=== PATIENT | female | born 1950 | race Hispanic/Latino ===

== ENCOUNTER 2018-07-15 19:22 | Emergency (ER) | payer OTHER ==
--- NOTE | 2018-07-15 20:03 | ER ---
Nurse's Notes [facility] Department Name: Ne Bellamy Age: 68 yrs Sex: Female : 1950 Arrival Date: 07/15/2018 Time: 19:25 Bed 8 Private MD: Diagnosis: Cellulitis of right lower limb Presentation: 07/15 19:30 Presenting complaint: Patient states: Reports Abscess to left tejeda for 2 days. aj Transition of care: patient was not received from another setting of care. Onset of symptoms was July 13, 2018. Risk Assessment: Do you want to hurt yourself or someone else? Patient reports no desire to harm self or others. Initial Sepsis Screen: Does the patient meet any 2 criteria? No. Patient's initial sepsis screen is negative. Does the patient have a suspected source of infection? No. Patient's initial sepsis screen is negative. Care prior to arrival: None. 19:30 Method Of Arrival: Ambulatory aj 19:30 Acuity: TREVOR 3 aj Triage Assessment: 19:31 Bite description: bite sustained to left tejeda. General: Appears in no apparent aj distress. comfortable, Behavior is calm, cooperative, appropriate for age. Pain: Complains of pain in left tejeda. Neuro: Level of Consciousness is awake, alert, obeys commands, Oriented to person, place, time, situation, Appropriate for age. Respiratory: Airway is patent Respiratory effort is even, unlabored, Respiratory pattern is regular, symmetrical. Derm: Skin is intact, is healthy with good turgor, Skin is pink, warm \T\ dry. normal, Abscess located on left tejeda is half dollar sized, has no drainage, is red, is raised. 19:45 Bite description: by unknown how wound happened, animal information: vaccination(s) is ak1 unknown. Historical: - Allergies: 19:31 No Known Allergies; aj - Home Meds: 19:31 Lamictal Oral [Active]; aspirin 81 mg Oral TbEC 1 tab once daily [Active]; Norvasc Oral aj [Active]; - PMHx: 19:31 Hypertension; aj - PSHx: 19:31 None; aj - Immunization history:: Last tetanus immunization: unknown. - Social history:: Smoking status: Patient/guardian denies using tobacco. - Ebola Screening: : Patient negative for fever greater than or equal to 101.5 degrees Fahrenheit, and additional compatible Ebola Virus Disease symptoms Patient denies exposure to infectious person Patient denies travel to an Ebola-affected area in the 21 days before illness onset No symptoms or risks identified at this time. Screenin:45 Abuse screen: Denies threats or abuse. Denies injuries from another. Nutritional ak1 screening: No deficits noted. Tuberculosis screening: No symptoms or risk factors identified. Fall Risk None identified. Assessment: 19:43 General: Appears in no apparent distress. Behavior is calm, cooperative. Pain: ak1 Complains of pain in left tejeda. Neuro: No deficits noted. Cardiovascular: No deficits noted. Respiratory: No deficits noted. GI: No signs and/or symptoms were reported involving the gastrointestinal system. : No signs and/or symptoms were reported regarding the genitourinary system. EENT: No signs and/or symptoms were reported regarding the EENT system. Derm: Wound noted Other: abscess to left tejeda X2 days. Musculoskeletal: No signs and/or symptoms reported regarding the musculoskeletal system. Vital Signs: 19:31 BP 174 / 61; Pulse 83; Resp 19; Temp 97.0; Pulse Ox 98% on R/A; Weight 78.47 kg; Height aj 5 ft. 5 in. (165.10 cm); 19:31 Body Mass Index 28.79 (78.47 kg, 165.10 cm) aj ED Course: 19:25 Patient arrived in ED. ag3 19:31 Triage completed. aj 19:31 Arm band placed on right wrist. Patient placed in an exam room. aj 19:37 Samara Haile, RN is Primary Nurse. ak1 19:44 Patient has correct armband on for positive identification. Bed in low position. Call ak1 light in reach. Side rails up X 1. 19:45 Srinivasan Angelo MD is Attending Physician. kdr 20:01 Boyd Ruelas MD is Referral Physician. kdr 20:24 No provider procedures requiring assistance completed. Patient did not have IV access ak1 during this emergency room visit. Administered Medications: 20:14 Drug: Bactrim (160 mg-800 mg (DS) 1 tablet Route: PO; ak1 20:24 Follow up: Response: No adverse reaction ak1 20:14 Drug: Dovray 10 mg-325 mg 1 tabs Route: PO; ak1 20:24 Follow up: Response: No adverse reaction ak1 20:18 Drug: Clindamycin 600 mg Route: IM; Site: right gluteus; ak1 20:24 Follow up: Response: No adverse reaction ak1 Outcome: 20:02 Discharge ordered by . kdr 20:25 Discharged to home ambulatory, with family. ak1 20:25 Condition: good 20:25 Discharge instructions given to patient, family, Instructed on discharge instructions, follow up and referral plans. no drinking with medication, no driving heavy equipment, medication usage, Demonstrated understanding of instructions, follow-up care, medications, Prescriptions given X 3. 20:27 Patient left the ED. ak1 Signatures: Krista Rodriguez RN Srinivasan Larsen MD MD kdr Krenek, Amber, RN RN ak1 Shira Self
--- NOTE | 2018-07-15 20:03 | EDPHYS ---
Physician Documentation [facility] Name: Ne Bellamy Age: 68 yrs Sex: Female : 1950 Arrival Date: 07/15/2018 Time: 19:25 Bed 8 Private MD: ED Physician Srinivasan Angelo HPI: 07/15 20:04 This 68 yrs old Female presents to ER via Ambulatory with complaints of Insect kdr Bite. 20:04 The patient presents with cellulitis of the right tejeda, the patient presents with a kdr swollen area of the . Description: The affected area is The patient had 1 cm janey abscess and 4 cm janey erythema., confluent, localized, erythematous, hot, tense, warm. Onset: The symptoms/episode began/occurred gradually, 2 day(s) ago. Possible cause(s): unknown. Associated signs and symptoms: The patient has no apparent associated signs or symptoms. Modifying factors: the symptoms are alleviated by nothing, the symptoms are aggravated by pressure, squeezing the lesion and expressing the contents, touching. Severity of symptoms: At their worst the symptoms were mild, in the emergency department the symptoms are unchanged. The patient has not experienced similar symptoms in the past. The patient has not recently seen a physician. Historical: - Allergies: 19:31 No Known Allergies; aj - Home Meds: 19:31 Lamictal Oral [Active]; aspirin 81 mg Oral TbEC 1 tab once daily [Active]; Norvasc Oral aj [Active]; - PMHx: 19:31 Hypertension; aj - PSHx: 19:31 None; aj - Immunization history:: Last tetanus immunization: unknown. - Social history:: Smoking status: Patient/guardian denies using tobacco. - Ebola Screening: : Patient negative for fever greater than or equal to 101.5 degrees Fahrenheit, and additional compatible Ebola Virus Disease symptoms Patient denies exposure to infectious person Patient denies travel to an Ebola-affected area in the 21 days before illness onset No symptoms or risks identified at this time. ROS: 20:04 Constitutional: Negative for fever, chills, and weight loss, Eyes: Negative for injury, kdr pain, redness, and discharge, Neck: Negative for injury, pain, and swelling. 20:04 Skin: Positive for abscess, cellulitis, discoloration, erythema, Negative for Exam: 20:04 Skin: abscess, that is small, approximately 1 cm(s), of the right tejeda, with kdr fluctuance, that is marked, with pointing, that is obvious, with surrounding cellulitis, that is moderate. 20:08 Constitutional: This is a well developed, well nourished patient who is awake, alert, kdr and in no acute distress. Vital Signs: 19:31 BP 174 / 61; Pulse 83; Resp 19; Temp 97.0; Pulse Ox 98% on R/A; Weight 78.47 kg; Height aj 5 ft. 5 in. (165.10 cm); 19:31 Body Mass Index 28.79 (78.47 kg, 165.10 cm) aj MDM: 20:02 Patient medically screened. kdr 20:04 Data reviewed: vital signs, nurses notes. Counseling: I had a detailed discussion with kdr the patient and/or guardian regarding: the historical points, exam findings, and any diagnostic results supporting the discharge/admit diagnosis, the need for outpatient follow up. Administered Medications: 20:14 Drug: Bactrim (160 mg-800 mg (DS) 1 tablet Route: PO; ak1 20:24 Follow up: Response: No adverse reaction ak1 20:14 Drug: [place] 10 mg-325 mg 1 tabs Route: PO; ak1 20:24 Follow up: Response: No adverse reaction ak1 20:18 Drug: Clindamycin 600 mg Route: IM; Site: right gluteus; ak1 20:24 Follow up: Response: No adverse reaction ak1 Disposition: 07/15/18 20:02 Discharged to Home. Impression: Cellulitis of right lower limb. - Condition is Stable. - Discharge Instructions: Cellulitis, Adult. - Prescriptions for Clindamycin HCl 300 mg Oral Capsule - take 1 capsule by ORAL route every 6 hours for 10 days; 40 capsule. Tylenol- Codeine #3 300-30 mg Oral Tablet - take 2 tablets by ORAL route every 6 hours As needed; 15 tablet. Bactrim DS 800- 160 mg Oral Tablet - take 1 tablet by ORAL route every 12 hours for 10 days; 20 tablet. - Medication Reconciliation Form, Thank You Letter, Antibiotic Education, Prescription Opioid Use form. - Follow up: Boyd Ruelas MD; When: 2 - 3 days; Reason: If symptoms return, Further diagnostic work-up, Recheck today's complaints, Continuance of care, Re-evaluation by your physician. - Problem is new. - Symptoms have improved. Signatures: Krista Rodriguez RN RN Srinivasan Carmona MD MD kdr Samara Haile RN RN ak1 Corrections: (The following items were deleted from the chart) 20:27 20:02 07/15/2018 20:02 Discharged to Home. Impression: Cellulitis of right lower limb. ak1 Condition is Stable. Forms are Medication Reconciliation Form, Thank You Letter, Antibiotic Education, Prescription Opioid Use. Follow up: Boyd Ruelas; When: 2 - 3 days; Reason: If symptoms return, Further diagnostic work-up, Recheck today's complaints, Continuance of care, Re-evaluation by your physician. Problem is new. Symptoms have improved. kdr
[2018-07-15] MEDS ORDERED: SMZ./TMP. 800/160 MG TABLET ONE (20:17)
[2018-07-15] MEDS ORDERED: HYDROCODONE/APAP 10/325 TAB ONE (20:17)
[2018-07-15] MEDS ORDERED: CLINDAMYCIN IV 150 MG/ML (4 mL) VIAL ONE (20:22)
[2018-07-15 20:56] VITALS: BP 174/61; TEMP 97; O2SAT 98
== END 2018-07-15 20:27 | disposition home or self-care (01) ==
LOC: ER 19:22
DX: L03.115 Cellulitis of right lower limb (principal); I10 Essential (primary) hypertension; Z79.82 Long term (current) use of aspirin
CPT/HCPCS: 96372; 99283; S0077

== ENCOUNTER 2020-09-06 19:44 | Emergency (ER) | payer OTHER ==
--- OUTSIDE RECORDS SUMMARY | 2020-09-06 19:47 | XMS REPORT | Continuity of Care Document ---
:1950 Author Organization [facility] t Address [address] [place] [address] Care Team Providers Name Role Phone GELLER Attending Clinician Unavailable Payers Payer Name Policy Type Policy Number Effective Date Expiration Date S ource Problems Condition Condition Condition Status Onset Resolution Last Treating Co mments Source Name Details Category Date Date Treatment Clinician Date History of History of Problem Resolve [facility] [place] [facility] Breast Breast Problem Active [facility] mass, left mass, [facility] [place] [facility] Allergies, Adverse Reactions, Alerts Allergy Allergy Status Severity Reaction(s) Onset Inactive Treating Comm ents Source Name Type Date Date Clinician No Known DA Active U 2018-0 [facility] [place] Family History Family Member Diagnosis Comments Start Date Stop Date Source Sister Family history of [facility] [place] malignant neoplasm [facility] of breast Social History Smoking Status Start Date Stop Date Source Former smoker [facility] Medications This patient has no known medications. Vital Signs Vital Name Observation Time Observation Value Comments Source BP [facility]st[facility] 2019-04-24 09:46:00 173 [facility] BP Diastolic 2019-04-24 09:46:00 71 mm[Hg[facility] Weight 2019-04-24 09:46:00 211 [lb_av] [facility] Body Mass Index 2019-04-24 09:46:00 35.11 kg/m2 [facility] [place] [facility] Temperature 2019-04-24 09:46:00 97.8 [degF] [facility] [place] [facility] Heart Rate 2019-04-24 09:46:00 75 /min [facility] [place] [facility] BP Systolic 2019-03-06 10:37:00 185 mm[Hg] [facility] [place] [facility] BP Diastolic 2019-03-06 10:37:00 84 mm[Hg] [facility] [place] [facility] Weight 2019-03-06 10:37:00 211 [lb_av] [facility] [place] [facility] Height 2019-03-06 10:37:00 65 [in_us] [facility] [place] [facility] Body Mass Index 2019-03-06 10:37:00 35.11 kg/m2 [facility] [place] [facility] Temperature 2019-03-06 10:37:00 97.5 [degF] [facility] [place] [facility] Procedures Procedure Date / Time Performing Clinician Source Performed History of Hysterectomy [facility] [place] [facility] Encounters Start End Encounter Admission Attending Care Care Encounter Source Date/Time Date/Time Type Type Clinicians Facility Department ID 2019-04-24 2019-04-24 [facility] [id number] [facility] 11:00:00 11:00:00 t; Shahzad MUNOZ Surgery - [facility] Lucio MUNOZ M.D. [place] [facility] 2019-03-06 2019-03-06 [facility] [id number] Univers 11:00:00 11:00:00 t[facility] [place] [facility] Results Test Description Test Time Test Comments Results Result [facility] e Comments UTERUS W/WO 2019-01-06 TUBE/OVA. PROLAPSE 15:55:00 --------RUN DATE: 01/06/19 [facility] PAGE 1 RUN TIME: 1702 Specimen Inquiry RUN USER: INTERFACE --------PATIENT: [facility]TER [facility] #: [id number] AGE/SX: 68/F ROOM: [facility] RE01/05/19REG DR: Yolanda Ragsdale MD : [birth year] BED: A DIS: 01/06/19 STATUS: DIS Hien TLOC: -------- SPEC #: [id number] RECD: 01/05/19 STATUS: PB REFrancisca #: [id number] LINDA: 01/05/19- SUBM DR: Yolanda Ragsdale MD ENTERED: 01/05/19 SP TYPE: UTERUSPRO OTHR DR: ORDERED: LEVEL IV CODES: [id number] - UTERUS, NOS PROCEDURES: LEVEL IV (Incomplete) TISSUES: UTERUS, NOS - UTERUS, CERVIX, BILATERAL FALLOPIAN TUBES AND OVARIES CLINICAL HISTORY 68 year old, cystocele, uterine prolapse, DANILO (wpd) FINAL DIAGNOSIS Uterus, cervix, bilateral fallopian tubes and ovaries, hysterectomy and bilateral salpingo-oophorectomy : - cervix, no significant pathologic alteration - benign endometrium with cystic atrophy - hyalinized and focally calcified leiomyomas of submucosa and myometrium - adenomyosis - uterine serosa, no significant pathologic alteration - bilateral ovarian atrophy - previously ligated fallopian tubes (clips present), the right with a paratubal cyst Tissue code 1 CPT code(s): 342[address] [facility] 01/06/19 GROSS DESCRIPTION ANATOMIC SOURCE OF TISSUE (per Requisition): Uterus, cervix, bilateral tubes and ovaries The specimen is received in formalin in a container, labeled with the patient's name and designated "uterus, cervix, bilateral tubes and ovaries". It consists of a 7.4 x 4.5 x 2.6 cm hysterectomy specimen with bilateral adnexa attached. The uterus weighs 45 gm. The serosa is connors, smooth, and glistening. The cervical external os measures 0.5 cm. The portio vaginalis measures 3.0 cm. The uterine cervix measures 3.5 cm in length. Material Handling Crew Supervisor sections are submitted in A1. CONTINUED ON NEXT PAGE --------RUN DATE: 01/06/19 [facility] PAGE 2 RUN TIME: 1702 Specimen Inquiry RUN USER: INTERFACE --------SPEC #: [id number] PATIENT: SUE BAXTER #[id number] (Continued) GROSS DESCRIPTION (Continued) The endometrium measures 0.1 cm and contains submucosal, firm nodules measuring up to 1.7 cm. The myometrium measures up to 1.0 cm and contains additional connors-white, firm nodules measuring up to 0.6 cm. The largest submucosal, firm nodule displays focal yellow calcification. Material Handling Crew Supervisor sections are submitted in A2 - A4 (A3 and A4 contains sections of the largest firm nodule with calcifications). The right adnexa consists of a 1.6 x 0.7 x 0.5 cm ovary with an attached previously ligated 6 x 0.4 x 0.4 cm segment of fallopian tube with fimbria. The ligation site contains a 1.2 cm clip. The entire fimbria, one cross-section of the tube and ovary are submitted in A5. The left adnexa consists of a 1.0 x 0.6 x 0.4 cm ovary with an attached previously ligated 3.5 x 0.4 x 0.3 cm segment of fallopian tube with fimbria. The ligation site contains a 1.2 cm clip. The entire fimbria and one cross-section of the tube and ovary are submitted in A6. hz/wpd 01/05/19 @ 1357 Signed Gabby Yates MD 01/06/19 1555 -------- END OF REPORT HGB HCT 2019-01-06 04:46:00 Test Item Value Reference Range Interpretation Comme nts HEMOGLOBIN (test code = HGB) 11.6 g/dL 10.7-13.9 N HEMATOCRIT (test code = HCT) 36.5 % 32.1-42.1 N AG HEPATITIS B [id number] 14:11:00 Test Item Value Reference Range Interpretation Comments AG HEPATITIS B SURFACE (test code NONREACTIVE NONREACTIVE = HBSAG) IS CONSENT FORM SIGNED FOR HIV TESTING? YAB HEPATITIS C [id number] 14:11:00 Test Item Value Reference Range Interpretation Comments AB HEPATITIS C (test code = NONREACTIVE NONREACTIVE HCVAB) SIGNAL TO CUTOFF (test code = 0.04 <0.80 N CUTOFF) IS CONSENT FORM SIGNED FOR HIV TESTING? YAB HIV 1 14:11:00 Test Item Value Reference Range Interpretation Comments AB HIV 1 2 (test NONREACTIVE NONREACTIVE Done by Magnolia Allison code = [id number]) 4th Gen HIV Ag/Ab Combo Screen IS CONSENT FORM SIGNED FOR HIV TESTING? YAG HEPATITIS B [id number] 13:41:00 Test Item Value Reference Range Interpretation Comments AG HEPATITIS B SURFACE (test code NONREACTIVE NONREACTIVE = HBSAG) IS CONSENT FORM SIGNED FOR HIV TESTING? YAB HEPATITIS C [id number] 13:41:00 Test Item Value Reference Range Interpretation Comments AB HEPATITIS C (test code = HCVAB) NONREACTIVE SIGNAL TO CUTOFF (test code = CUTOFF) <0.80 IS CONSENT FORM SIGNED FOR HIV TESTING? YAB HIV 1 13:41:00 Test Item Value Reference Range Interpretation Comments AB HIV 1 2 (test code = GFS23JG) NONREACTIVE IS CONSENT FORM SIGNED FOR HIV TESTING? YCHEMISTRY 7 [id number] 13:24:00 Test Item Value Reference Range Interpretation Comments SODIUM (test code = NA) 140 mEq/L 135-145 N POTASSIUM (test code = K) 4.4 mEq/L 3.5-5.0 N CHLORIDE (test code = CL) 102 mEq/L 100-115 N CARBON DIOXIDE (test code = CO2) 27 mEq/L 22-31 N ANION GAP (test code = GAP) 15.70 10-20 N GLUCOSE (test code = GLU) 97 mg/dL 65-110 N BLOOD UREA NITROGEN (test code = 17 mg/dL 7-18 N BUN) GLOMERULAR FILTRATION RATE (test 55 ml/min >60 L code = GFR) CREATININE (test code = CREAT) 1.0 mg/dL 0.5-1.0 N CALCIUM (test code = CA) 9.5 mg/dL 8.4-10.2 N CBC W/AUTO [id number] 12:49:00 Test Item Value Reference Range Interpretation Comments WHITE BLOOD CELL (test code = WBC) 7.8 K/mm3 6.6-12.1 N RED BLOOD CELL (test code = RBC) 4.65 M/mm3 3.45-5.01 N HEMOGLOBIN (test code = HGB) 13.7 g/dL 10.7-13.9 N HEMATOCRIT (test code = HCT) 43.2 % 32.1-42.1 H MEAN CELL VOLUME (test code = MCV) 93 fL 84.1-94.8 N MEAN CELL HGB (test code = MCH) 29.5 pg 27-35 N MEAN CELL HGB CONCETRATION (test 31.7 gm/dL 32.2-34.1 L code = MCHC) RED CELL DISTRIBUTION WIDTH (test 13.4 % 12.4-16.5 N code = RDW) PLATELET COUNT (test code = PLT) 273 K/mm3 133-385 N IMMATURE PLATELET FRACTION (test 0.0 % 0.0-10.8 N code = IPF) MEAN PLATELET VOLUME (test code = 10.9 fl 9.1-12.7 N MPV) NEUTROPHIL % (test code = NT%) 63.2 % 56.5-79.4 N LYMPHOCYTE % (test code = LY%) 27.7 % 14.3-34.3 N MONOCYTE % (test code = MO%) 6.3 % 5.1-10.4 N EOSINOPHIL % (test code = EO%) 1.9 % 0.1-3.0 N BASOPHIL % (test code = BA%) 0.5 % 0.1-1.0 N NEUTROPHIL # (test code = NT#) 4.9 K/mm3 LYMPHOCYTE # (test code = LY#) 2.2 K/mm3 MONOCYTE # (test code = MO#) 0.5 K/mm3 EOSINOPHIL # (test code = EO#) 0.15 K/mm3 BASOPHIL # (test code = BA#) 0.0 K/mm3 RBC MORPHOLOGY REQUIRED (test code NORMAL NORMAL = RBCM) PLATELET MORPHOLOGY REQUIRED (test NORMAL NORMAL code = PLTMR) URINALYSIS [id number] 12:24:00 Test Item Value Reference Range Interpretation Comments UA COLOR (test code = COLU) YELLOW YELLOW UA APPEARANCE (test code = CLEAR CLEAR APPU) UA GLUCOSE DIPSTICK (test code NEGATIVE NEG = DGLUU) UA BILIRUBIN DIPSTICK (test NEGATIVE NEG code = BILU) UA KETONE DIPSTICK (test code NEGATIVE NEG = KETU) UA SPECIFIC GRAVITY (test code 1.008 1.001-1.035 N = SGU) UA BLOOD DIPSTICK (test code = NEG NEG NYLA) UA PH DIPSTICK (test code = 6.0 5-9 RUTH) UA PROTEIN DIPSTICK (test code NEGATIVE NEG = PROU) UA UROBILINIOGEN DIPSTICK NEGATIVE mg/dL NEG (test code = URO) UA NITRITE DIPSTICK (test code NEG NEG = MARITZA) UA LEUKOCYTE ESTERASE DIPSTICK NEG NEG (test code = LEUU) UA WBC (test code = WBCU) 0-2 #/hpf NONE SEEN UA RBC (test code = RBCU) 0-2 #/hpf NONE SEEN UA EPITHELIAL CELLS (test code RARE #/HPF RARE-FEW = EPIU) UA MUCUS (test code = MUCU) RARE NONE SEEN URINE SAMPLE: CLEAN CATCH
[2020-09-06 20:37] LABS: Absolute Lymphocytes (CBC) 1.5 K/uL (0.7-4.9); Basophils % 0.7 % (0-1.3); Hematocrit 43.9 % (36.0-45.0); Lymphocytes % 13.7 % (15.3-44.8); MPV 7.8 fL (7.6-11.3); RBC Red Blood Cell Count 5.15 M/uL (3.86-4.86)
[2020-09-06 20:42] LABS: Protime INR 1.07
[2020-09-06 20:57] LABS: ALT/SGPT 31 U/L (12-78); AST/SGOT 33 U/L (15-37); Albumin 3.7 g/dL (3.4-5.0); Alkaline Phosphatase 102 U/L (45-117); BUN Blood Urea Nitrogen 16 mg/dL (7-18); Bicarbonate 25 mmol/L (21-32); Bilirubin Direct 0.2 mg/dL (0-0.2); Bilirubin Total 0.6 mg/dL (0.2-1.0); Glucose Level 140 mg/dL (74-106); NT PRO-BNP 29 pg/mL (<125); Potassium 3.2 mmol/L (3.5-5.1); Protein, Total 8.9 g/dL (6.4-8.2); Sodium Level 135 mmol/L (136-145); Troponin (Emerg Dept Use Only) < 0.02 ng/mL (0.0-0.045)
--- NOTE | 2020-09-06 21:00 | RAD REPORT ---
EXAM DESCRIPTION: CT - Head Brain Wo Cont - 09/06/2020 8:35 pm CLINICAL HISTORY: Headache COMPARISON: 2007 TECHNIQUE: Computed axial tomography of the head was obtained. IV contrast was not requested. All CT scans are performed using dose optimization technique as appropriate and may include automated exposure control or mA/KV adjustment according to patient size. FINDINGS: An intracranial bleed is not seen . 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 The ventricles are normal in caliber. No extra-axial fluid collection is noted. Fluid within the sinuses/ mastoids is not seen. IMPRESSION: No acute intracranial abnormality is seen. If patient's symptoms persist MRI of the bra in would be recommended.
--- NOTE | 2020-09-06 21:16 | RAD REPORT ---
EXAM DESCRIPTION: Raphael Single View09/06/2020 8:48 pm CLINICAL HISTORY: Cough COMPARISON: 2019 FINDINGS: Left base is hazy. The remainder of the lungs appear clear of acute infiltrate. The heart is normal size IMPRESSION: Left base is hazy. This could be secondary to infiltrate or overlying soft tissue. [facility] er evaluation could either be obtained with PA and lateral chest series or CT chest
[2020-09-06] MEDS ORDERED: POTASSIUM CL SA 10 MEQ TAB PO ONE (21:43)
[2020-09-06 22:12] LABS: Urine Blood TRACE (NEG); Urine Glucose NEGATIVE (NEG); Urine Protein NEGATIVE (NEG)
[2020-09-06] MEDS ORDERED: NA CHLORIDE 0.9% 1,000 ML ONE (22:24)
[2020-09-06] MEDS ORDERED: CEFTRIAXONE/SWI 1gm 1 GM/10 ML SYR ONE (22:24)
[2020-09-06 22:36] LABS: Urine Bacteria <20 /HPF (<20); Urine Mucus 1+ /HPF (NONE SEEN)
--- NOTE | 2020-09-06 23:04 | ER ---
Nurse's Notes [facility] Name: Ne Bellamy Age: 70 yrs Sex: Female : 1950 Arrival Date: 09/06/2020 Time: 19:46 Bed 7 Private MD: Diagnosis: Pneumonia;Viral Syndrome;UTI Presentation: 09/06 20:03 Chief complaint: Patient states: Weak, tired, FIGUEROA, body aches, cough for 3 days. No ll1 known fever. Little nausea. Coronavirus screen: Client denies travel out of the [place] in the last 14 days. cough unrelated to allergies, difficulty breathing, fatigue, headache, nausea, loss of taste or smell, Client presents with at least one sign or symptom that may indicate coronavirus-19. Standard/surgical mask placed on the client. Ebola Screen: Patient denies travel to an Ebola-affected area in the 21 days before illness onset. Initial Sepsis Screen: Does the patient meet any 2 criteria? HR > 90 bpm. No. Patient's initial sepsis screen is negative. Does the patient have a suspected source of infection? Yes: Productive cough/pneumonia. Risk Assessment: Do you want to hurt yourself or someone else? Patient reports no desire to harm self or others. Onset of symptoms was September 04, 2020. 20:03 Method Of Arrival: Ambulatory ll1 20:03 Acuity: TREVOR 3 ll1 Triage Assessment: 20:04 General: Appears in no apparent distress. Behavior is appropriate for age. Pain: ea Complains of pain in body aches. Respiratory: Airway is patent Respiratory effort is even, unlabored, Respiratory pattern is regular, symmetrical. Historical: - Allergies: 20:03 No Known Allergies; ll1 20:03 No Known Allergies; ea - PMHx: 20:03 Hypertension; Seizures; ll1 20:03 Seizures; Hypertension; ea - PSHx: 20:03 Hysterectomy; ll1 20:03 None; ea - Immunization history:: Adult Immunizations up to date, Flu vaccine is up to date. - Social history:: Smoking status: Patient denies any tobacco usage or history of. Smoking status: Patient denies any tobacco usage or history of. Screenin:01 Abuse screen: Denies threats or abuse. Nutritional screening: No deficits noted. ea Tuberculosis screening: No symptoms or risk factors identified. Fall Risk None identified. Assessment: 20:00 General: Appears in no apparent distress. uncomfortable, Behavior is calm, cooperative, rr5 appropriate for age, Reports feeling ill for fatigue for. Pain: Denies pain. Neuro: Level of Consciousness is awake, alert, obeys commands, Oriented to person, place, time, situation, Reports drowsiness. Cardiovascular: Capillary refill < 3 seconds Patient's skin is warm and dry. Respiratory: Reports cough that is Airway is patent Respiratory effort is even, unlabored, Respiratory pattern is regular, symmetrical. 20:00 GI: No signs and/or symptoms were reported involving the gastrointestinal system. : rr5 No signs and/or symptoms were reported regarding the genitourinary system. EENT: No signs and/or symptoms were reported regarding the EENT system. Derm: Skin is intact, is healthy with good turgor, Skin temperature is cool. Musculoskeletal: Capillary refill < 3 seconds. 21:30 Reassessment: Patient appears in no apparent distress at this time. Patient is alert, rr5 oriented x 3, equal unlabored respirations, skin warm/dry/pink. send for CT angio assisted by CT staff. 22:30 Reassessment: Patient appears in no apparent distress at this time. Patient is alert, rr5 oriented x 3, equal unlabored respirations, skin warm/dry/pink. no complaints made. 23:21 Reassessment: Patient appears in no apparent distress at this time. Patient is alert, rr5 oriented x 3, equal unlabored respirations, skin warm/dry/pink. discharge instruction given and explained without complaints made Patient states feeling better. Patient states symptoms have improved. Vital Signs: 20:02 BP 154 / 69; Pulse 70; Resp 19; Temp 99.6; Pulse Ox 98% ; ea 20:03 BP 154 / 69; Pulse 98; Resp 18; Temp 99.6; Pulse Ox 94% on R/A; Weight 83.91 kg; Height ll1 5 ft. 5 in. (165.10 cm); 21:00 BP 141 / 89; Pulse 90; Resp 16; Pulse Ox 98% ; rr5 22:11 BP 126 / 80; Pulse 80; Resp 17; Pulse Ox 100% ; rr5 23:21 BP 125 / 70; Pulse 75; Resp 19; Temp 98.5; Pulse Ox 99% ; rr5 20:03 Body Mass Index 30.79 (83.91 kg, 165.10 cm) ll1 ED Course: 19:46 Patient arrived in ED. cl3 19:57 Kenroy Gómez, RN is Primary Nurse. rr5 19:57 Gerardo Macedo MD is Attending Physician. mh7 20:01 Patient has correct armband on for positive identification. Placed in gown. Bed in low ea position. Call light in reach. Side rails up X2. Pulse ox on. NIBP on. 20:01 Arm band placed on right wrist. Patient placed in an exam room, on a stretcher, on ea pulse oximetry. 20:05 Triage completed. ll1 20:15 COVID swab sent to lab. Flu and/or RSV swab sent to lab. rr5 20:30 EKG done, by ED staff, reviewed by Gerardo Macedo MD. rr5 20:34 Inserted saline lock: 20 gauge in right forearm, using aseptic technique. Blood rr5 collected. 20:36 CT Head Brain wo Cont In Process Unspecified. EDMS 20:47 XRAY Chest (1 view) In Process Unspecified. EDMS 21:41 CT Chest For PE Angio In Process Unspecified. EDMS 22:09 Urine collected: clean catch specimen, clear. rr5 23:20 No provider procedures requiring assistance completed. IV discontinued, intact, rr5 bleeding controlled, No redness/swelling at site. Pressure dressing applied. Administered Medications: 21:40 Drug: Potassium Chloride 40 mEq Route: PO; rr5 22:27 Follow up: Response: No adverse reaction rr5 22:19 Drug: NS 0.9% 1000 ml Route: IV; Rate: 1 bolus; Site: right antecubital; rr5 23:22 Follow up: Response: No adverse reaction; IV Status: Completed infusion; IV Intake: rr5 1000ml 22:19 Drug: Rocephin 1 grams Route: IV; Rate: calculated rate; Site: right forearm; rr5 23:21 Follow up: Response: No adverse reaction; IV Status: Completed infusion; IV Intake: [id number] Intake: 23:21 IV: 10ml; Total: 10ml. rr5 23:22 IV: 1000ml; Total: 1010ml. rr5 Outcome: 23:04 Discharge ordered by . 7 23:20 Discharged to home ambulatory. rr5 23:20 Condition: stable 23:20 Discharge instructions given to patient, Instructed on discharge instructions, follow up and referral plans. medication usage, Demonstrated understanding of instructions, follow-up care, medications, Prescriptions given X 3. 23:22 Patient left the ED. rr5 Addendum: 09/10/2020 08:48 Addendum: Culture Results: Positive urine culture. Bacteria is resistant to, has s v intermediate sensitivity, or is not tested against prescribed antibiotics. Report given to MARLENI for further evaluation and then to abap developer for follow up with patient. Phone call Attempt #1 left voicemail. Signatures: Dispatcher Kalion EDMS Terri Franco RN RN Lin Jose RN Kenroy Fink ea RN RN rr5 Jason Yeh3 Edouard Yeh RN RN ll1 Gerardo Macedo MD MD mh7
--- NOTE | 2020-09-06 23:04 | EDPHYS ---
Physician Documentation [facility] Name: Ne Bellamy Age: 70 yrs Sex: Female : 1950 Arrival Date: 09/06/2020 Time: 19:46 Bed 7 Private MD: ED Physician Gerardo Macedo HPI: 09/06 20:22 This 70 yrs old Female presents to ER via Ambulatory with complaints of Drowsy.mh7 20:22 The patient or guardian reports cough, that is intermittent, described as moderate, mh7 with no sputum. 20:23 The patient or guardian reports flu symptoms, myalgias, Headache. Onset: The mh7 symptoms/episode began/occurred 2 day(s) ago. Severity of symptoms: At their worst the symptoms were moderate, yesterday, in the emergency department the symptoms have improved, moderately. Modifying factors: The symptoms are alleviated by nothing, the symptoms are aggravated by nothing. Associated signs and symptoms: Pertinent positives: loss of taste, Pertinent negatives: chest pain, diarrhea, ear ache, fever, nausea, rhinorrhea, sore throat, vomiting. Historical: - Allergies: 20:03 No Known Allergies; ll1 20:03 No Known Allergies; ea - PMHx: 20:03 Hypertension; Seizures; ll1 20:03 Seizures; Hypertension; ea - PSHx: 20:03 Hysterectomy; ll1 20:03 None; ea - Immunization history:: Adult Immunizations up to date, Flu vaccine is up to date. - Social history:: Smoking status: Patient denies any tobacco usage or history of. Smoking status: Patient denies any tobacco usage or history of. ROS: 20:23 Constitutional: Negative for fever, chills, and weight loss, Eyes: Negative for injury, mh7 pain, redness, and discharge, ENT: Negative for injury, pain, and discharge, Neck: Negative for injury, pain, and swelling, Cardiovascular: Negative for chest pain, palpitations, and edema, Abdomen/GI: Negative for abdominal pain, nausea, vomiting, diarrhea, and constipation, Back: Negative for injury and pain, : Negative for injury, bleeding, discharge, and swelling, MS/Extremity: Negative for injury and deformity, Skin: Negative for injury, rash, and discoloration, Psych: Negative for depression, anxiety, suicide ideation, homicidal ideation, and hallucinations, Allergy/Immunology: Negative for hives, rash, and allergies, Endocrine: Negative for neck swelling, polydipsia, polyuria, polyphagia, and marked weight changes, Hematologic/Lymphatic: Negative for swollen nodes, abnormal bleeding, and unusual bruising. Exam: 20:23 Constitutional: This is a well developed, well nourished patient who is awake, alert, mh7 and in no acute distress. Head/Face: Normocephalic, atraumatic. Eyes: Pupils equal round and reactive to light, extra-ocular motions intact. Lids and lashes normal. Conjunctiva and sclera are non-icteric and not injected. Cornea within normal limits. Periorbital areas with no swelling, redness, or edema. Neck: Trachea midline, no thyromegaly or masses palpated, and no cervical lymphadenopathy. Supple, full range of motion without nuchal rigidity, or vertebral point tenderness. No Meningismus. Chest/axilla: Normal chest wall appearance and motion. Nontender with no deformity. No lesions are appreciated. Cardiovascular: Regular rate and rhythm with a normal S1 and S2. No gallops, murmurs, or rubs. Normal PMI, no JVD. No pulse deficits. Respiratory: Lungs have equal breath sounds bilaterally, clear to auscultation and percussion. No rales, rhonchi or wheezes noted. No increased work of breathing, no retractions or nasal flaring. Abdomen/GI: Soft, non-tender, with normal bowel sounds. No distension or tympany. No guarding or rebound. No evidence of tenderness throughout. Back: No spinal tenderness. No costovertebral tenderness. Full range of motion. Skin: Warm, dry with normal turgor. Normal color with no rashes, no lesions, and no evidence of cellulitis. MS/ Extremity: Pulses equal, no cyanosis. Neurovascular intact. Full, normal range of motion. Neuro: Awake and alert, GCS 15, oriented to person, place, time, and situation. Cranial nerves II-XII grossly intact. Motor strength 5/5 in all extremities. Sensory grossly intact. Cerebellar exam normal. Normal gait. Psych: Awake, alert, with orientation to person, place and time. Behavior, mood, and affect are within normal limits. Vital Signs: 20:02 BP 154 / 69; Pulse 70; Resp 19; Temp 99.6; Pulse Ox 98% ; ea 20:03 BP 154 / 69; Pulse 98; Resp 18; Temp 99.6; Pulse Ox 94% on R/A; Weight 83.91 kg; Height ll1 5 ft. 5 in. (165.10 cm); 21:00 BP 141 / 89; Pulse 90; Resp 16; Pulse Ox 98% ; rr5 22:11 BP 126 / 80; Pulse 80; Resp 17; Pulse Ox 100% ; rr5 23:21 BP 125 / 70; Pulse 75; Resp 19; Temp 98.5; Pulse Ox 99% ; rr5 20:03 Body Mass Index 30.79 (83.91 kg, 165.10 cm) ll1 MDM: 23:01 Differential Diagnosis: Bronchitis Influenza Upper Respiratory Infection Sinusitis [facility] Allergic Rhinitis Viral Syndrome Pneumonia. Data reviewed: vital signs, nurses notes, lab test result(s), CBC, electrolytes, urinalysis, EKG, radiologic studies, CT scan, plain films. Data interpreted: Pulse oximetry: on room air is 95 %. Interpretation: normal. Counseling: I had a detailed discussion with the patient and/or guardian regarding: the historical points, exam findings, and any diagnostic results supporting the discharge/admit diagnosis, the presence of at least one elevated blood pressure reading (>120/80) during this emergency department visit, lab results, radiology results, the need for outpatient follow up, to return to the emergency department if symptoms worsen or persist or if there are any questions or concerns that arise at home. Response to treatment: the patient's symptoms have resolved after treatment, the patient's blood pressure is in an acceptable range, mental status has returned to baseline, the patient no longer shows bradycardia, the patient is not short of breath, the patient is not tachycardic, the patient's pain is gone, the patient's temperature has normalized. 23:04 Patient medically screened. [facility] 09/06 20:21 Order name: Basic Metabolic Panel [facility] 09/06 20:21 Order name: CBC with Diff; Complete Time: 20:55 [facility] 09/06 20:21 Order name: LFT's [facility] 09/06 20:21 Order name: Magnesium; Complete Time: 21:19 [facility] 09/06 20:21 Order name: NT PRO-BNP; Complete Time: 21:19 [facility] 09/06 20:21 Order name: PT-INR; Complete Time: 20:55 [facility] 09/06 20:21 Order name: Troponin (emerg Dept Use Only); Complete Time: 21:19 [facility] 09/06 20:21 Order name: Influenza Screen (a \T\ B); Complete Time: 21:19 [facility] 09/06 20:21 Order name: COVID-19 [facility] 09/06 20:22 Order name: Basic Metabolic Panel; Complete Time: 21:19 EDMS 09/06 20:22 Order name: Liver (Hepatic) Function; Complete Time: 21:19 EDMS 09/06 22:08 Order name: Urine Microscopic Only; Complete Time: 22:55 rr 09/06 22:08 Order name: Urine Culture [facility] 09/06 22:09 Order name: Urine Dipstick--Ancillary (enter results); Complete Time: 22:26 tt3 09/06 20:21 Order name: XRAY Chest (1 view); Complete Time: 21:19 [facility] 09/06 20:21 Order name: EKG; Complete Time: 20:22 [facility] 09/06 20:21 Order name: Cardiac monitoring; Complete Time: 20:33 [facility] 09/06 20:21 Order name: EKG - Nurse/Tech; Complete Time: 20:33 [facility] 09/06 20:21 Order name: IV Saline Lock; Complete Time: 20:34 [facility] 09/06 20:21 Order name: Labs collected and sent; Complete Time: 20:34 [facility] 09/06 20:21 Order name: O2 Per Protocol; Complete Time: 20:34 [facility] 09/06 20:21 Order name: O2 Sat Monitoring; Complete Time: 20:34 [facility] 09/06 20:21 Order name: Urine Dipstick-Ancillary (obtain specimen); Complete Time: 22:27 [facility] 09/06 20:22 Order name: CT Head Brain wo Cont; Complete Time: 21:19 [facility] 09/06 21:22 Order name: CT Chest For PE Angio 7 Administered Medications: 21:40 Drug: Potassium Chloride 40 mEq Route: PO; rr5 22:27 Follow up: Response: No adverse reaction rr5 22:19 Drug: NS 0.9% 1000 ml Route: IV; Rate: 1 bolus; Site: right antecubital; rr5 23:22 Follow up: Response: No adverse reaction; IV Status: Completed infusion; IV Intake: rr5 1000ml 22:19 Drug: Rocephin 1 grams Route: IV; Rate: calculated rate; Site: right forearm; rr5 23:21 Follow up: Response: No adverse reaction; IV Status: Completed infusion; IV Intake: [id number] Disposition: 09/06/20 23:04 Discharged to Home. Impression: Pneumonia, Viral Syndrome, UTI. - Condition is Stable. - Prescriptions for Keflex 500 mg Oral Capsule - take 1 capsule by ORAL route every 12 hours for 7 days; 14 capsule. Zithromax Z- Adrián 250 mg Oral Tablet - take 1 tablet by ORAL route as directed for 5 days Day 1 - take two (2) tablets one time. Day 2, 3, 4 , 5 take one (1) tablet once daily.; 6 tablet. Albuterol Sulfate 90 mcg/actuation - inhale 1-2 puff by INHALATION route every 4-6 hours; 1 Inhaler. - Medication Reconciliation Form, Thank You Letter, Antibiotic Education, Prescription Opioid Use form. - Follow up: Private Physician; When: 1 - 2 days; Reason: Trouble breathing, Worsening of condition, Recheck today's complaints, Continuance of care, Re-evaluation by your physician. - Problem is new. - Symptoms have improved. Signatures: Dispatcher [employer] EDMS Lin Jose RN RN ea Roque, Raymond, RN RN rr5 Edouard Yeh RN RN ll1 Gerardo Macedo MD MD 7 Corrections: (The following items were deleted from the chart) 23:22 23:04 09/06/2020 23:04 Discharged to Home. Impression: Pneumonia; Viral Syndrome; UTI. rr5 Condition is Stable. Forms are Medication Reconciliation Form, Thank You Letter, Antibiotic Education, Prescription Opioid Use. Follow up: Private Physician; When: 1 - 2 days; Reason: Trouble breathing, Worsening of condition, Recheck today's complaints, Continuance of care, Re-evaluation by your physician. Problem is new. Symptoms have improved. 7
--- NOTE | 2020-09-07 13:59 | EKG ---
Test Date: 2020-09-06 Test Time: 20:29:02 Showroom Consultant: DANIEL MEASUREMENT RESULTS: Intervals: Rate: 99 WV: 148 QRSD: 80 QT: 342 QTc: 438 [place]: P: 31 WV: 148 QRS: 16 T: 73 INTERPRETIVE STATEMENTS: Normal sinus rhythm Possible Left atrial enlargement Inferior infarct, age undetermined Abnormal ECG Compared to ECG 06/07/2017 13:41:14 Myocardial infarct finding now present Electronically Signed On 09-07-20 13:58:17 BRAKE REPAIRER by Paulino Dooley
--- NOTE | 2020-09-08 17:31 | RAD REPORT ---
EXAM DESCRIPTION: CT - Chest For Pe Angio - 09/07/2020 7:04 am CLINICAL HISTORY: 70 years Female PE COMPARISON: None TECHNIQUE: Images were obtained in axial, sagittal, and coronal planes. Intravenous contrast was adm inistered. This exam was performed according to our departmental dose-optimization program which includes use of Automated Exposure Control, adjustment of the mA and/or kV according to patient size and/or use of iterative reconstruction technique. FINDINGS: No filling defects pulmonary arteries bilaterally. No aortic dissection or dilatation. No adenopathy. No pericardial or pleural effusions bilaterally. No pneumothorax. Peripheral groundglass attenuation bilaterally. Parenchymal stranding lower lobes bi laterally. Ill-defined nodularity peripheral right upper lobe and peripheral left lung. Decreased attenuation liver likely fatty change. No acute osseous abnormality. IMPRESSION: No evidence for pulmonary embolus. No aortic dissection or dilatation. Bilateral infiltrates consistent with but not specific for atypical pneumonia including viral infecti on. Electronically signed by: Marianne Salcedo MD 09/06/2020 9:58 PM DATA REVIEW SPECIALIST Due to temporary technical issues with the PACS/Fluency reporting system, reports are being signed by the in house radiologists without review as a courtesy to insure prompt reporting. The interpreting radiologist is fully responsible for the content of the report.
[2020-09-09 18:15] VITALS: BP 125/70; TEMP 98.5; O2SAT 99
== END 2020-09-06 23:22 | disposition home or self-care (01) ==
LOC: ER 19:44
DX: J18.9 Pneumonia, unspecified organism (principal); N39.0 Urinary tract infection, site not specified; B34.9 Viral infection, unspecified; I10 Essential (primary) hypertension
CPT/HCPCS: 96365; 93005; 87088; 85025; 87086; 80048; 36415; 83735; 85610; 80076; 87077; 87186; 84484; 83880; 87804 ×2; 70450; 71275; 71045; 99284; Q9967; J0696; J7030; 81003; 81015

== ENCOUNTER 2021-11-04 11:58 | Emergency (ER) | payer OTHER ==
--- OUTSIDE RECORDS SUMMARY | 2021-11-04 12:01 | XMS REPORT | Continuity of Care Document ---
:1950 [address] [facility] t Address [address] [place] [address] Care Team Providers Name Role Phone GELLER [...] Start Date Stop Date Source Former smoker [facility] Medications This patient has no known medications. Vital Signs Vital Name Observation Time Observation Value Comments Source BP Systolic 2019-04-24 09:46:00 173 mm[Hg] [facility] BP Diastolic 2019-04-24 09:46:00 71 mm[Hg] [facility] Weight 2019-04-24 09:46:00 211 [lb_av] [facility] Body Mass Index 2019-04-24 09:46:00 35.11 kg/m2 [facility] [place] [facility] Temperature 2019-04-24 09:46:00 97.8 [degF] [facility] [place] [facility] Heart Rate 2019-04-24 09:46:00 75 /min [facility] [place] [facility] BP Systolic 2019-03-06 10:37:00 185 mm[Hg] [facility] [place] [facility] BP Diastolic 2019-03-06 10:37:00 84 [...] Source Performed History of Hysterectomy [facility] Encounters Start End Encounter Admission Attending Care Care Encounter Source Date/Time Date/Time Type Type Clinicians Facility Department ID 2019-04-24 2019-04-24 [facility] [id number] [facility] 11:00:00 11:00:00 t; Shahzad MUNOZ Surgery - [facility] Lucio MUNOZ M.D. [place] [facility] 2019-03-06 2019-03-06 [facility] [id number] [facility] 11:00:00 11:00:00 t[facility] [place] [facility] Results Test Description Test Time Test Comments Results Result [facility] e Comments UTERUS W/WO 2019-01-06 TUBE/OVA. PROLAPSE 15:55:00 --------RUN DATE: 01/06/19 [facility] PAGE 1 RUN TIME: 1702 Specimen Inquiry RUN USER: INTERFACE --------PATIENT: [facility]UE BAXTER [facility] #: [id number] AGE/SX: 68/F ROOM: [facility] RE01/05/19REG DR: Yolanda Ragdsale MD : [birth year] BED: A DIS: 01/06/19 STATUS: DIS Hien TLOC: -------- SPEC #: [id number] RECD: 01/05/19 STATUS: PB REFrancisca #: [id number] LINDA: 01/05/19- SUBM DR: Yolanda Ragsdale MD ENTERED: 01/05/19 SP TYPE: UTERUSPRO OTHR DR: ORDERED: LEVEL IV CODES: [id number] - UTERUS, NOS PROCEDURES: LEVEL IV (Incomplete) [...] paratubal cyst Tissue code 1 CPT code(s): 41655 [facility] 01/06/19 GROSS DESCRIPTION ANATOMIC SOURCE OF [...] uterine cervix measures 3.5 cm in length. Pole Cutter sections are submitted in A1. CONTINUED ON NEXT PAGE --------RUN DATE: 01/06/19 [facility] PAGE 2 RUN TIME: 1702 Specimen Inquiry RUN USER: INTERFACE --------SPEC #: [id number] PATIENT: SUE BAXTER #[id number] (Continued) GROSS DESCRIPTION (Continued) The endometrium measures 0.1 cm and contains submucosal, firm nodules measuring up to 1.7 cm. The myometrium measures up to 1.0 cm and contains additional connors-white, firm nodules measuring up to 0.6 cm. The largest submucosal, firm nodule displays focal yellow calcification. Pole Cutter sections are submitted in A2 - A4 [...] MD 01/06/19 1555 -------- END OF REPORT [facility] 2019-01-06 04:46:00 Test Item Value Reference Range Interpretation Comme nts HEMOGLOBIN (test code = HGB) 11.6 g/dL 10.7-13.9 N HEMATOCRIT (test code = HCT) 36.5 % 32.1-42.1 N AG HEPATITIS B [id number] 14:11:00 Test Item Value Reference Range Interpretation Comments AG HEPATITIS B SURFACE (test code NONREACTIVE NONREACTIVE = HBSAG) IS CONSENT FORM SIGNED FOR HIV TESTING? YAB HEPATITIS C [id number] 14:11:00 Test Item Value Reference Range Interpretation Comments AB HEPATITIS C (test code = NONREACTIVE NONREACTIVE HCVAB) SIGNAL TO CUTOFF (test code = 0.04 <0.80 N CUTOFF) IS CONSENT FORM SIGNED FOR HIV TESTING? YAB HIV 1 14:11:00 Test Item Value Reference Range Interpretation Comments AB HIV 1 2 (test NONREACTIVE NONREACTIVE Done by [employer]olia Allison code = FSE46QA) 4th Gen HIV Ag/Ab Combo Screen IS CONSENT FORM SIGNED FOR HIV TESTING? YAG HEPATITIS B [id number] 13:41:00 Test Item Value Reference Range Interpretation Comments AG HEPATITIS B SURFACE (test code NONREACTIVE NONREACTIVE = HBSAG) IS CONSENT FORM SIGNED FOR HIV TESTING? YAB HEPATITIS C [id number] 13:41:00 Test Item Value Reference Range Interpretation Comments AB HEPATITIS C (test code = HCVAB) NONREACTIVE SIGNAL TO CUTOFF (test code = CUTOFF) <0.80 IS CONSENT FORM SIGNED FOR HIV TESTING? YAB HIV 1 13:41:00 Test Item Value Reference Range Interpretation Comments AB HIV 1 2 (test code = BEJ04PY) NONREACTIVE IS CONSENT FORM SIGNED FOR HIV TESTING? YCHEMISTRY 7 [id number] 13:24:00 Test Item Value Reference Range Interpretation [...] CA) 9.5 mg/dL 8.4-10.2 N CBC W/AUTO [id number] 12:49:00 Test Item Value Reference Range Interpretation [...] (test NORMAL NORMAL code = PLTMR) URINALYSIS [id number] 12:24:00 Test Item Value Reference Range Interpretation [...]
[2021-11-04] MEDS ORDERED: NA CHLORIDE 0.9% 1,000 ML ONE (12:40)
[2021-11-04] MEDS ORDERED: METOCLOPRAMIDE 10 MG/2mL INJ ONE (12:41)
--- NOTE | 2021-11-04 13:02 | RAD REPORT ---
EXAM DESCRIPTION: CT - Head Brain Wo Cont - 11/04/2021 12:40 pm CLINICAL HISTORY: Headache COMPARISON: 2019 TECHNIQUE: Computed axial tomography of the head was obtained. IV contrast was not requested. All CT scans are performed using dose optimization technique as appropriate and may include automated exposure control or mA/KV adjustment according to patient size. FINDINGS: An intracranial bleed is not seen . The ventricles are normal in caliber. No extra-axial fluid collection is noted. Minimal cerebellar tonsillar ectopia Fluid within the sinuses/ mastoids is not seen. IMPRESSION: No acute intracranial abnormality is seen. If patient's symptoms persist MRI of the bra in would be recommended.
--- NOTE | 2021-11-04 13:34 | EDPHYS ---
Physician Documentation [facility] Name: Ne Bellamy Age: 71 yrs Sex: Female : 1950 Arrival Date: 11/04/2021 Time: 12:00 Bed 27 Private MD: ED Physician Jesus Rivera HPI: 11/04 12:18 This 71 yrs old Female presents to ER via Unassigned with complaints of rn Headache. 12:18 The patient complains of pain to the top of head and forehead. The patient describes rn the headache as aching. Onset: The symptoms/episode began/occurred 2 month(s) ago. Associated signs and symptoms: Pertinent positives: dizziness, Pertinent negatives: altered mental status, fever, neck stiffness, rash, vision changes, vision loss, vomiting, weakness, vertigo. Severity of symptoms: At its worst the pain was moderate, in the emergency department the pain has improved. Headache History: The patient has had previous headaches and this one is similar to previous episodes. The symptoms are alleviated by over the counter pain medication, Tylenol, the symptoms are aggravated by nothing. The patient has experienced similar episodes in the past. The patient has been recently seen by a physician:. Patient reports 2 months of headache, top of head and forehead. No trauma. No fever. Does not feel ill. Has seen PCP for this and prescribed an antidepressant due to recent loss of multiple family members. Denies any focal neurological problems. Does report intermittent dizziness in times of pain. No previous imaging performed.. Historical: - Allergies: 12:25 No Known Allergies; eo2 - Home Meds: 12:25 aspirin 81 mg Oral TbEC 1 tab once daily [Active]; Lamictal Oral [Active]; Norvasc Oral eo2 [Active]; - PMHx: 12:25 Hypertension; Seizures; high cholesterol; eo2 - Immunization history:: Adult Immunizations up to date, x3 doses. - Social history:: Smoking status: Patient denies any tobacco usage or history of. Patient/guardian denies using alcohol, street drugs. - Family history:: not pertinent. - Hospitalizations: : No recent hospitalization is reported. ROS: 12:18 Constitutional: Negative for fever, chills, and weight loss, Eyes: Negative for injury, rn pain, redness, and discharge, Neck: Negative for injury, pain, and swelling, Cardiovascular: Negative for chest pain, palpitations, and edema, Respiratory: Negative for shortness of breath, cough, wheezing, and pleuritic chest pain, Abdomen/GI: Negative for abdominal pain, nausea, vomiting, diarrhea, and constipation, Back: Negative for injury and pain, MS/Extremity: Negative for injury and deformity, Skin: Negative for injury, rash, and discoloration, Neuro: Negative for weakness, numbness, tingling, and seizure. Exam: 12:18 Constitutional: This is a well developed, well nourished patient who is awake, alert, rn and in no acute distress. Ambulatory to room without assistance or difficulty Head/Face: Normocephalic, atraumatic. Eyes: Pupils equal round and reactive to light, extra-ocular motions intact. Periorbital areas with no swelling, redness, or edema. Neck: Trachea midline, no masses palpated, and no cervical lymphadenopathy. Supple, full range of motion without nuchal rigidity, or vertebral point tenderness. No Meningismus. Cardiovascular: Regular rate and rhythm. No pulse deficits. Respiratory: No increased work of breathing, no retractions or nasal flaring. Skin: Warm, dry with normal turgor. Normal color with no rashes, no lesions, and no evidence of cellulitis. MS/ Extremity: Pulses equal, no cyanosis. Neurovascular intact. Full, normal range of motion. Equal circumference. Neuro: Awake and alert, GCS 15, oriented to person, place, time, and situation. Cranial nerves II-XII grossly intact. Motor strength 5/5 in all extremities. Sensory grossly intact. Cerebellar exam normal. Normal gait. Vital Signs: 12:15 BP 158 / 76; Pulse 96; Resp 17; Temp 99.0; Pulse Ox 98% on R/A; Weight 81.65 kg; Height eo2 5 ft. 5 in. (165.10 cm); Pain 7/10; 13:00 BP 140 / 63; Pulse 86; Resp 15; Pulse Ox 95% ; Pain 5/10; eo2 14:38 BP 146 / 59; Pulse 81; Resp 15; Pulse Ox 96% ; Pain 4/10; eo2 12:15 Body Mass Index 29.95 (81.65 kg, 165.10 cm) eo2 [place] Coma Score: 12:29 Eye Response: spontaneous(4). Verbal Response: oriented(5). Motor Response: obeys eo2 commands(6). Total: 15. 13:31 Eye Response: spontaneous(4). Verbal Response: oriented(5). Motor Response: obeys rn commands(6). Total: 15. MDM: 12:04 Patient medically screened. rn 13:31 Differential diagnosis: hypertensive headache, intracerebral hemorrhage, migraine, rn neoplasm, tension headache, vasomotor headache. Data reviewed: vital signs, nurses notes, radiologic studies, CT scan, and as a result, I will discharge patient. Counseling: I had a detailed discussion with the patient and/or guardian regarding: the historical points, exam findings, and any diagnostic results supporting the discharge/admit diagnosis, radiology results, the need for outpatient follow up, to return to the emergency department if symptoms worsen or persist or if there are any questions or concerns that arise at home. Response to treatment: the patient's symptoms have markedly improved after treatment, and as a result, I will discharge patient. Special discussion: I discussed with the patient/guardian in detail that at this point there is no indication for admission to the hospital. It is understood, however, that if the symptoms persist or worsen the patient needs to return immediately for re-evaluation. Based on the history and exam findings, there is no indication for further emergent testing or inpatient evaluation. I discussed with the patient/guardian the need to see the neurologist for further evaluation of the symptoms. ED course: Pt markedly improved, sleeping comfortably, CT head neg, stable vitals, normal neuro exam, will dc home with neuro f/u. . 11/04 12:15 Order name: CT Head Brain wo Cont; Complete Time: 13:06 rn 11/04 12:15 Order name: IV Start; Complete Time: 12:39 rn Administered Medications: 12:45 Drug: NS 0.9% 1000 ml Route: IV; Rate: 1000 ml; Site: right antecubital; eo2 14:00 Follow up: Response: No adverse reaction; IV Status: Completed infusion; IV Intake: eo2 1000ml 12:45 Drug: Reglan (metoCLOPramide) 10 mg Route: IVP; Site: right antecubital; eo2 14:00 Follow up: Response: No adverse reaction eo2 Disposition Summary: 11/04/21 13:33 Discharge Ordered Location: Home rn Problem: an ongoing problem rn Symptoms: have improved rn Condition: Stable rn Diagnosis - Headache rn Followup: rn - With: Ernst Moya MD - When: As needed - Reason: Recheck today's complaints, Re-evaluation by your physician Discharge Instructions: - Discharge Summary Sheet rn - General Headache Without Cause rn - Migraine Headache rn Forms: - Medication Reconciliation Form rn - Thank You Letter rn - Antibiotic furnace loader - Prescription Opioid Use rn Signatures: Dispatcher [employer] EDJesus Gimenez MD MD rn Owoade, Eunice, RN RN eo2
--- NOTE | 2021-11-04 13:34 | ER ---
Nurse's Notes [facility] Name: Ne Bellamy Age: 71 yrs Sex: Female : 1950 Arrival Date: 11/04/2021 Time: 12:00 Bed 27 Private MD: Diagnosis: Headache Presentation: 11/04 12:15 Chief complaint: Patient states: Headache x 2 months, started on Duloxetine by PCP, eo2 stopped taking this med in the past month due to S/E from the medication, no FIGUEROA for 1 month, FIGUEROA onset last night, b/l temples, now frontal and sinus area, reports FIGUEROA makes her "tired, takes my breath away". Pt reports associated symptoms of nausea, denies CP, V/D. Coronavirus screen: Vaccine status: Patient reports receiving the 2nd dose of the covid vaccine. Client denies travel out of the [place] in the last 14 days. At this time, the client does not indicate any symptoms associated with coronavirus-19. Ebola Screen: Patient negative for fever greater than or equal to 101.5 degrees Fahrenheit, and additional compatible Ebola Virus Disease symptoms Patient denies exposure to infectious person. Patient denies travel to an Ebola-affected area in the 21 days before illness onset. Initial Sepsis Screen: Does the patient meet any 2 criteria? No. Patient's initial sepsis screen is negative. Does the patient have a suspected source of infection? No. Patient's initial sepsis screen is negative. Risk Assessment: Do you want to hurt yourself or someone else? Patient reports no desire to harm self or others. Onset of symptoms is unknown. 12:15 Method Of Arrival: Ambulatory eo2 12:15 Acuity: TREVOR 3 eo2 Triage Assessment: 12:25 Headache History: The patient has had previous headaches and this one is more severe eo2 than previous episodes. General: Appears in no apparent distress. comfortable, Behavior is calm, cooperative, appropriate for age. Pain: Pain currently is 7 out of 10 on a pain scale. Pain began suddenly, Also complains of nausea, shortness of breath. Neuro: Level of Consciousness is awake, alert, obeys commands, Oriented to person, place, time, situation, Moves all extremities. Full function Speech is normal, Facial symmetry appears normal, Pupils are PERRLA, Reports headache numbness weakness. Cardiovascular: Denies chest pain, Heart tones S1 S2 Capillary refill < 3 seconds. Respiratory: Reports shortness of breath Airway is patent Trachea midline Breath sounds are clear bilaterally. GI: Abdomen is non-distended, Bowel sounds present X 4 quads. Reports nausea, Patient currently denies diarrhea, vomiting. : No deficits noted. No signs and/or symptoms were reported regarding the genitourinary system. Musculoskeletal: No deficits noted. No signs and/or symptoms reported regarding the musculoskeletal system. Historical: - Allergies: 12:25 No Known Allergies; eo2 - Home Meds: 12:25 aspirin 81 mg Oral TbEC 1 tab once daily [Active]; Lamictal Oral [Active]; Norvasc Oral eo2 [Active]; - PMHx: 12:25 Hypertension; Seizures; high cholesterol; eo2 - Immunization history:: Adult Immunizations up to date, x3 doses. - Social history:: Smoking status: Patient denies any tobacco usage or history of. Patient/guardian denies using alcohol, street drugs. - Family history:: not pertinent. - Hospitalizations: : No recent hospitalization is reported. Screenin:29 Abuse screen: Denies threats or abuse. Denies injuries from another. Nutritional eo2 screening: No deficits noted. Tuberculosis screening: No symptoms or risk factors identified. Fall Risk None identified. Assessment: 12:29 Reassessment: see assessment in triage. Pain: Complains of pain in forehead and top of eo2 head. Vital Signs: 12:15 BP 158 / 76; Pulse 96; Resp 17; Temp 99.0; Pulse Ox 98% on R/A; Weight 81.65 kg; Height eo2 5 ft. 5 in. (165.10 cm); Pain 7/10; 13:00 BP 140 / 63; Pulse 86; Resp 15; Pulse Ox 95% ; Pain 5/10; eo2 14:38 BP 146 / 59; Pulse 81; Resp 15; Pulse Ox 96% ; Pain 4/10; eo2 12:15 Body Mass Index 29.95 (81.65 kg, 165.10 cm) eo2 Corie Coma Score: 12:29 Eye Response: spontaneous(4). Verbal Response: oriented(5). Motor Response: obeys eo2 commands(6). Total: 15. 13:31 Eye Response: spontaneous(4). Verbal Response: oriented(5). Motor Response: obeys rn commands(6). Total: 15. ED Course: 12:00 Patient arrived in ED. rg4 12:04 Jesus Rivera MD is Attending Physician. rn 12:06 Rylie Smiley, ALAN is Primary Nurse. eo2 12:25 Triage completed. eo2 12:25 Arm band placed on. eo2 12:29 Patient has correct armband on for positive identification. Pulse ox on. NIBP on. Door eo2 closed. Noise minimized. Warm blanket given. 12:29 No provider procedures requiring assistance completed. eo2 12:38 Missed attempt(s): 20 gauge in left antecubital area. Inserted saline lock: 20 gauge in 4 right antecubital area, using aseptic technique. 12:40 CT Head Brain wo Cont In Process Unspecified. EDMS 13:33 Ernst Moya MD is Referral Physician. rn 14:38 IV discontinued, intact, Pressure dressing applied. eo2 Administered Medications: 12:45 Drug: NS 0.9% 1000 ml Route: IV; Rate: 1000 ml; Site: right antecubital; eo2 14:00 Follow up: Response: No adverse reaction; IV Status: Completed infusion; IV Intake: eo2 1000ml 12:45 Drug: Reglan (metoCLOPramide) 10 mg Route: IVP; Site: right antecubital; eo2 14:00 Follow up: Response: No adverse reaction eo2 Intake: 14:00 IV: 1000ml; Total: 1000ml. eo2 Outcome: 13:33 Discharge ordered by . rn 14:39 Discharged to home ambulatory, with family. eo2 14:39 Condition: stable 14:39 Discharge instructions given to patient, family, Instructed on discharge instructions, follow up and referral plans. Demonstrated understanding of instructions, follow-up care. 14:40 Patient left the ED. eo2 Signatures: Dispatcher [employer] EDNV Jesus Rivera MD MD rn Garcia, Rubi 4 Cel[facility] Rylie Smiley, ALAN RN eo2
[2021-11-04 14:45] VITALS: TEMP 99
[2021-11-04 14:48] VITALS: BP 146/59; O2SAT 96
== END 2021-11-04 14:40 | disposition home or self-care (01) ==
LOC: ER 11:58
DX: R51.9 Headache, unspecified (principal); I10 Essential (primary) hypertension
CPT/HCPCS: 96361; 70450; 96374; 99284; J2765; J7030

== ENCOUNTER 2022-01-07 13:46 | Emergency (ER) | payer OTHER ==
--- OUTSIDE RECORDS SUMMARY | 2022-01-07 13:51 | XMS REPORT | Continuity of Care Document ---
:1950 Author Organization [facility] t Address [address] [place] [address] Care Team Providers Name Role Phone GELLER Attending Clinician Unavailable Payers Payer Name Policy Type Policy Number Effective Date Expiration Date S ource Problems Condition Condition Condition Status Onset Resolution Last Treating Co mments Source Name Details Category Date Date Treatment Clinician Date History of History of Problem Resolve [facility] [place] [facility] Breast Breast Problem Active [facility] mass, left mass, left [facility] [place] [facility] Allergies, Adverse Reactions, Alerts Allergy Allergy Status Severity Reaction(s) Onset Inactive Treating Comm ents Source Name Type Date Date Clinician No Known DA Active U 2018-0 [facility] 4[facility]10 [facility] [place] Family [facility] Family Member Diagnosis Comments Start Date Stop Date Source Sister Family history of [facility] [place] malignant neoplasm Physic ians of breast Social History Smoking Status Start Date Stop Date Source Former smoker [facility] Medications This patient has no known medications. Vital Signs Vital Name Observation Time Observation Value Comments Source BP Systolic 2019-04-24 09:46:00 173 [facility]Hg[facility] BP Diastolic 2019-04-24 09:46:00 71 mm[Hg] [facility] Weight 2019-04-24 09:46:00 211 [lb_av] [facility] Body Mass Index 2019-04-24 09:46:00 35.11 kg/m2 [facility] [place] [facility] Temperature 2019-04-24 09:46:00 97.8 [degF] [facility] [place] [facility] Heart Rate 2019-04-24 09:46:00 75 /min [facility] [place] [facility] BP Systolic 2019-03-06 10:37:00 185 mm[Hg] [facility] [place] [facility] BP Diastolic 2019-03-06 10:37:00 84 mm[Hg] [facility] [place] [facility] Weight 2019-03-06 10:37:00 211 [lb_av] [facility] [place] [facility] Height 2019-03-06 10:37:00 65 [in_us] [facility] [place] [facility] Body Mass Index 2019-03-06 10:37:00 35.11 kg/m2 [facility] [place] [facility] Temperature 2019-03-06 10:37:00 97.5 [degF] [facility] [place] [facility] Procedures Procedure Date / Time Performing Clinician Source Performed History of Hysterectomy [facility] [place] [facility] Encounters Start End Encounter Admission Attending Care Care Encounter Source Date/Time Date/Time Type Type Clinicians Facility Department ID 2019-04-24 2019-04-24 [facility] [id number] [facility] 11:00:00 11:00:00 t; Shahzad MUNOZ Surgery - [facility] Lucio MUNOZ M.D. Skipwith ans 2019-03-06 2019-03-06 [facility] [id number] [facility] 11:00:00 11:00:00 t[facility] Results Test Description Test Time Test Comments Results Result [facility] e Comments UTERUS W/WO 2019-01-06 TUBE/OVA. PROLAPSE 15:55:00 --------RUN DATE: 01/06/19 [facility] PAGE 1 RUN TIME: 1702 Specimen Inquiry RUN USER: INTERFACE --------PATIENT: [facility]UE BAXTER [facility] #: [id number] AGE/SX: 68/F ROOM: [facility] RE01/05/19REG DR: Yolanda Ragsdale MD : [birth year] BED: A DIS: 01/06/19 STATUS: DIS Hien TLOC: -------- SPEC #: [id number] RECD: 01/05/19 STATUS: PB REFrancisca #: [id number] LINDA: 01/05/19- SUBM DR: Yolanda Ragsdale MD ENTERED: 01/05/19 SP TYPE: UTERUSPRO OTHR DR: ORDERED: LEVEL IV CODES: [id number] - UTERUS, NOS PROCEDURES: LEVEL IV (Incomplete) [...] paratubal cyst Tissue code 1 CPT code(s): 79984 [facility] 01/06/19 GROSS DESCRIPTION ANATOMIC SOURCE OF TISSUE [...] uterine cervix measures 3.5 cm in length. Non Acoustic Operator sections are submitted in A1. CONTINUED ON NEXT PAGE --------RUN DATE: 01/06/19 [facility] PAGE 2 RUN TIME: 1702 Specimen Inquiry RUN USER: INTERFACE --------SPEC #: [id number] PATIENT: SUE BAXTER #[id number] (Continued) GROSS DESCRIPTION (Continued) The endometrium measures 0.1 cm and contains submucosal, firm nodules measuring up to 1.7 cm. The myometrium measures up to 1.0 cm and contains additional connors-white, firm nodules measuring up to 0.6 cm. The largest submucosal, firm nodule displays focal yellow calcification. Non Acoustic Operator sections are submitted in A2 - A4 [...] 36.5 % 32.1-42.1 N AG HEPATITIS B [id number] 14:11:00 Test Item Value Reference Range Interpretation Comments AG HEPATITIS B SURFACE (test code NONREACTIVE NONREACTIVE = HBSAG) IS CONSENT FORM SIGNED FOR HIV TESTING? YAB HEPATITIS C [id number] 14:11:00 Test Item Value Reference Range Interpretation Comments AB HEPATITIS C (test code = NONREACTIVE NONREACTIVE HCVAB) SIGNAL TO CUTOFF (test code = 0.04 <0.80 N CUTOFF) IS CONSENT FORM SIGNED FOR HIV TESTING? YAB HIV 1 14:11:00 Test Item Value Reference Range Interpretation Comments AB HIV 1 2 (test NONREACTIVE NONREACTIVE Done by [employer]olia Allison code = SAH06QM) 4th Gen HIV Ag/Ab Combo Screen IS CONSENT FORM SIGNED FOR HIV TESTING? YAG HEPATITIS B [id number] 13:41:00 Test Item Value Reference Range Interpretation Comments AG HEPATITIS B SURFACE (test code NONREACTIVE NONREACTIVE = HBSAG) IS CONSENT FORM SIGNED FOR HIV TESTING? YAB HEPATITIS C [id number] 13:41:00 Test Item Value Reference Range Interpretation Comments AB HEPATITIS C (test code = HCVAB) NONREACTIVE SIGNAL TO CUTOFF (test code = CUTOFF) <0.80 IS CONSENT FORM SIGNED FOR HIV TESTING? YAB HIV 1 13:41:00 Test Item Value Reference Range Interpretation Comments AB HIV 1 2 (test code = LYR26QC) NONREACTIVE IS CONSENT FORM SIGNED FOR HIV TESTING? YCHEMISTRY 7 [id number] 13:24:00 Test Item Value Reference Range Interpretation [...] CA) 9.5 mg/dL 8.4-10.2 N CBC W/AUTO [id number] 12:49:00 Test Item Value Reference Range Interpretation [...] (test NORMAL NORMAL code = PLTMR) URINALYSIS [id number] 12:24:00 Test Item Value Reference Range Interpretation [...]
[2022-01-07 15:31] LABS: RBC Red Blood Cell Count 4.71 M/uL (3.86-4.86)
[2022-01-07 15:32] LABS: Absolute Lymphocytes (CBC) 0.4 K/uL (0.7-4.9); Hematocrit 40.2 % (36.0-45.0); Lymphocytes % 3.3 % (15.3-44.8); MPV 8.2 fL (7.6-11.3)
[2022-01-07 15:33] LABS: Protime INR 1.06
[2022-01-07] MEDS ORDERED: NA CHLORIDE 0.9% 500 ML ONE (15:40)
[2022-01-07 15:50] LABS: Albumin 3.7 g/dL (3.4-5.0); Bilirubin Direct 0.3 mg/dL (0-0.2); Bilirubin Total 0.9 mg/dL (0.2-1.0); Magnesium 1.9 mg/dL (1.8-2.4); Potassium 3.2 mmol/L (3.5-5.1); Protein, Total 8.4 g/dL (6.4-8.2); Troponin High Sensitivity 4.7 pg/mL (<58.9)
[2022-01-07 16:42] LABS: Blood Morphology Comment NOT SEEN (NOT SEEN); Platelet Estimate ADEQ; White Blood Cell Scan OK (OK)
--- NOTE | 2022-01-07 16:45 | RAD REPORT ---
EXAM DESCRIPTION: CT - Abdomen Pelvis W Contrast - 01/07/2022 4:29 pm CLINICAL HISTORY: Abdominal pain/vomiting COMPARISON: none. TECHNIQUE: Computed axial tomography of the abdomen pelvis was obtained. 100 cc Isovue-300 was admin istered intravenously. Oral contrast was not requested which limits evaluation of bowel. All CT scans are performed using dose optimization technique as appropriate and may include automated exposure control or mA/KV adjustment according to patient size. FINDINGS: Mild fatty liver The Spleen, pancreas, adrenal and kidneys appear unremarkable. There is no evidence of diverticulitis. Normal appendix Hysterectomy. No adnexal mass. Mild gallbladder distention Spondylosis involves lumbar spine resulting in spinal stenosis IMPRESSION: Mild gallbladder distention
--- NOTE | 2022-01-07 16:47 | RAD REPORT ---
EXAM DESCRIPTION: Raphael Single View01/07/2022 3:40 pm CLINICAL HISTORY: Abdominal pain/vomiting COMPARISON: 2019 FINDINGS: The lungs appear clear of acute infiltrate. The heart is normal size IMPRESSION: No acute abnormalities displayed
--- NOTE | 2022-01-07 18:08 | RAD REPORT ---
EXAM DESCRIPTION: US - Abdomen Exam Limited - 01/07/2022 6:02 pm CLINICAL HISTORY: Abdominal pain. Vomiting COMPARISON: None. FINDINGS: The gallbladder is upper limits normal size. The gallbladder wall is not thickened. A gallstone is not seen. The biliary tree is normal caliber. IMPRESSION: Unremarkable gallbladder ultrasound.
--- NOTE | 2022-01-07 18:42 | ER ---
Nurse's Notes [facility] Name: Ne Bellamy Age: 71 yrs Sex: Female : 1950 Arrival Date: 01/07/2022 Time: 13:52 Bed 4 Private MD: Lotus Ellison Diagnosis: Nausea with vomiting, unspecified Presentation: 01/07 14:17 Chief complaint: Patient's son or daughter states: N/V 'all day since yesterday' and vg1 today 'about 5x', denies diarrhea. Pt states cough and chills since yesterday. Coronavirus screen: Vaccine status: Patient reports receiving the 2nd dose of the covid vaccine. Client denies travel out of the [place] in the last 14 days. Client presents with at least one sign or symptom that may indicate coronavirus-19. Standard/surgical mask placed on the client. Ebola Screen: Patient negative for fever greater than or equal to 101.5 degrees Fahrenheit, and additional compatible Ebola Virus Disease symptoms. Initial Sepsis Screen: Does the patient meet any 2 criteria? No. Patient's initial sepsis screen is negative. Does the patient have a suspected source of infection? No. Patient's initial sepsis screen is negative. Risk Assessment: Do you want to hurt yourself or someone else? Patient reports no desire to harm self or others. Onset of symptoms was January 06, 2022. 14:17 Method Of Arrival: Wheelchair vg1 14:17 Acuity: TREVOR 3 vg1 Triage Assessment: 14:20 General: Appears uncomfortable, Behavior is cooperative, drowsy. Pain: Denies pain. GI: vg1 Reports nausea, vomiting, Patient currently denies diarrhea. Historical: - Allergies: 14:20 No Known Allergies; vg1 - Home Meds: 14:20 aspirin 81 mg Oral TbEC 1 tab once daily [Active]; amlodipine oral [Active]; Oxybutynin vg1 Chloride Oral [Active]; rizatriptan oral [Active]; Omeprazole Oral [Active]; lamotrigine oral [Active]; - PMHx: 14:20 High Cholesterol; Hypertension; Seizures; Gastric reflux; vg1 - Immunization history:: Client reports receiving the 2nd dose of the Covid vaccine. - Social history:: Smoking status: Patient denies any tobacco usage or history of. Screenin:13 Abuse screen: Denies threats or abuse. Nutritional screening: No deficits noted. dw3 Tuberculosis screening: No symptoms or risk factors identified. Fall Risk IV access (20 points). Gait- Weak (10 pts.). Total Garber Fall Scale indicates Low Risk Score (25-44 pts). Fall prevention measures have been instituted. Side Rails Up X 2 Placed close to Nursing Station Family Present and informed to notify staff if they need to leave bedside. Assessment: 14:44 General: Appears uncomfortable, Behavior is calm, cooperative. Pain: Complains of pain dw3 in right upper quadrant Pain currently is 9 out of 10 on a pain scale. Neuro: Level of Consciousness is awake, alert, obeys commands, Oriented to person, place, time, situation. Cardiovascular: Reports nausea, and not being able to keep food down since yesterday (01/06/22). Respiratory: Airway is patent Respiratory effort is even, labored. GI: Abdomen is distended. : No signs and/or symptoms were reported regarding the genitourinary system. EENT: No signs and/or symptoms were reported regarding the EENT system. Derm: Skin is brown, and matches pt's ethnicity. Musculoskeletal: Capillary refill < 3 seconds. Vital Signs: 14:17 BP 133 / 49; Pulse 99; Resp 20; Temp 99.5(O); Pulse Ox 98% on R/A; Weight 86.18 kg; vg1 Height 5 ft. 5 in. (165.10 cm); Pain 0/10; 14:44 BP 135 / 48; Pulse 93; Resp 20; Temp 99.4; Pulse Ox 98% on R/A; dw3 16:45 BP 109 / 50; Pulse 85; Resp 20; Temp 98.9; Pulse Ox 94% on R/A; dw3 19:10 BP 97 / 41; Pulse 80; Resp 20; Temp 98.3; Pulse Ox 93% on R/A; dw3 14:17 Body Mass Index 31.62 (86.18 kg, 165.10 cm) vg1 ED Course: 13:52 Patient arrived in ED. as 13:53 Lotus Ellison is Private Physician. as 13:58 [facility] cp 13:58 Justus Figueroa MD is Attending Physician. cp 14:20 Triage completed. vg1 14:20 Arm band placed on. vg1 14:44 Patient has correct armband on for positive identification. Bed in low position. Call dw3 light in reach. Side rails up X 1. Side rails up X2. Adult w/ patient. 15:00 Olga Lidia Mayfield, RN is Primary Nurse. dw3 15:13 Initial lab(s) drawn, by me, sent to lab. Inserted saline lock: 20 gauge in right aa5 antecubital area, using aseptic technique. Blood collected. 15:25 EKG done, by ED staff, reviewed by Justus MONTANEZ. dh3 15:41 XRAY Chest (1 view) In Process Unspecified. EDMS 16:32 CT Abd/Pelvis - IV Contrast Only In Process Unspecified. EDMS 18:04 US Abdomen Limited: RUQ/epigastric In Process Unspecified. EDMS 18:42 Misael Koehler MD is Referral Physician. cp 19:10 No provider procedures requiring assistance completed. IV discontinued, intact, dw3 bleeding controlled, No redness/swelling at site. Pressure dressing applied. Administered Medications: 15:43 Drug: NS 0.9% 250 ml Route: IV; Rate: bolus; Site: right antecubital; aa5 16:30 Follow up: IV Status: Completed infusion dw3 15:43 Drug: NS 0.9% 250 ml Route: IV; Rate: 125 ml/hr; Site: right antecubital; aa5 17:30 Follow up: IV Status: Completed infusion dw3 19:08 Drug: Potassium Effervescent Tablet 50 mEq Route: PO; dw3 19:10 Follow up: Response: Medication administered at discharge. dw3 Outcome: 18:42 Discharge ordered by . cp 19:10 Discharged to home via wheelchair, with family. dw3 19:10 Condition: stable 19:10 Discharge instructions given to patient, Instructed on discharge instructions, follow up and referral plans. medication usage, Demonstrated understanding of instructions, follow-up care, medications, Prescriptions given X 2. 19:20 Patient left the ED. aa5 Addendum: 01/13/2022 08:40 Addendum: Culture Results: Positive urine culture. Patient was not prescribed a a5 antibiotics at discharge. Report given to MARLENI for further evaluation and then to living specialist for follow up with patient. Phone call Attempt #1 left voice mail. Signatures: Dispatcher [employer] Susannah Jackson Audri, RN RN aa5 Justus Cifuentes PA PA cp Herrera, Deanna 3 Dianne Mandujano, RN RN vg1 Olga Lidia Mayfield, RN RN dw3 Corrections: (The following items were deleted from the chart) 01/07 14:22 14:17 Chief complaint: Patient's son or daughter states: N/V 'all day since yesterday' vg1 and today 'about 5x', denies diarrhea. Pt states cough since yesterday. vg1 16:16 16:08 General: Appears uncomfortable, Behavior is calm, cooperative, [facility] 16:16 16:08 Pain: Complains of pain in right upper quadrant Pain currently is 9 out of 10 on [facility] a pain scale. 3 16:16 16:08 Neuro: Level of Consciousness is awake, alert, obeys commands, Oriented to [facility] person, place, time, situation, [facility] 16:16 16:08 Cardiovascular: Reports nausea, and not being able to keep food down since 3 yesterday (01/06/22) 3 16:16 16:08 Respiratory: Airway is patent Respiratory effort is even, labored, 3 3 16:16 16:08 GI: Abdomen is distended, 3 3 16:16 16:08 : No signs and/or symptoms were reported regarding the genitourinary system. dw3d3 16:16 16:08 EENT: No signs and/or symptoms were reported regarding the EENT system. 3 [facility] 16:16 16:08 Derm: Skin is brown, and matches pt's ethnicity [place] [id number] 16:16 16:08 Musculoskeletal: Capillary refill < 3 seconds, 3 dw3
--- NOTE | 2022-01-07 18:42 | EDPHYS ---
Physician Documentation [facility] Name: Ne Bellamy Age: 71 yrs Sex: Female : 1950 Arrival Date: 01/07/2022 Time: 13:52 Bed 4 Private MD: Lotus Ellison ED Physician Justus Figueroa HPI: 01/07 14:45 This 71 yrs old Female presents to ER via Wheelchair with complaints of cp Vomiting, Weakness. 14:45 The patient presents to the emergency department with nausea, with "dry heaves", cp vomiting, that is continuous. Onset: The symptoms/episode began/occurred yesterday. Possible causes: unknown. Associated signs and symptoms: Pertinent negatives: diarrhea, fever, GI bleeding. Historical: - Allergies: 14:20 No Known Allergies; vg1 - Home Meds: 14:20 aspirin 81 mg Oral TbEC 1 tab once daily [Active]; amlodipine oral [Active]; Oxybutynin vg1 Chloride Oral [Active]; rizatriptan oral [Active]; Omeprazole Oral [Active]; lamotrigine oral [Active]; - PMHx: 14:20 High Cholesterol; Hypertension; Seizures; Gastric reflux; vg1 - Immunization history:: Client reports receiving the 2nd dose of the Covid vaccine. - Social history:: Smoking status: Patient denies any tobacco usage or history of. ROS: 14:50 Constitutional: Positive for poor PO intake, Negative for body aches, chills, fever. cp 14:50 Eyes: Negative for injury, pain, redness, and discharge. cp 14:50 ENT: Negative for drainage from ear(s), ear pain, sore throat, difficulty swallowing, difficulty handling secretions. 14:50 Cardiovascular: Negative for chest pain, edema, palpitations. 14:50 Respiratory: Negative for cough, shortness of breath, wheezing. 14:50 Abdomen/GI: Positive for abdominal pain, nausea and vomiting, anorexia, of the epigastric area, Negative for diarrhea, constipation, hematemesis, black/tarry stool, rectal bleeding. 14:50 : Negative for urinary symptoms. 14:50 Neuro: Positive for weakness, Negative for altered mental status, headache. 14:50 All other systems are negative. Exam: 14:55 Constitutional: The patient appears in no acute distress, alert, awake, cp non-diaphoretic, non-toxic, well developed, well nourished, uncomfortable. 14:55 Head/Face: Normocephalic, atraumatic. cp 14:55 Eyes: Periorbital structures: appear normal, Conjunctiva: normal, no exudate, no injection, Sclera: no appreciated abnormality, Lids and lashes: appear normal, bilaterally. 14:55 ENT: External ear(s): are unremarkable, Nose: is normal, Mouth: Lips: moist, Oral mucosa: moist, Posterior pharynx: Airway: no evidence of obstruction, patent. 14:55 Neck: ROM/movement: is normal, is supple, without pain, no range of motions limitations. 14:55 Chest/axilla: Inspection: normal. 14:55 Cardiovascular: Rate: normal, Rhythm: regular, Edema: is not appreciated, JVD: is not appreciated. 14:55 Respiratory: the patient does not display signs of respiratory distress, Respirations: normal, no use of accessory muscles, no retractions, labored breathing, is not present, Breath sounds: are clear throughout, no decreased breath sounds, no stridor, no wheezing. 14:55 Abdomen/GI: Inspection: abdomen appears normal, Bowel sounds: active, all quadrants, Palpation: soft, in all quadrants, mild abdominal tenderness, in the epigastric area, rebound tenderness, is not appreciated, voluntary guarding, is not appreciated, involuntary guarding, is not appreciated. 14:55 Back: CVA tenderness, is absent. 14:55 Neuro: Orientation: to person, place \\T\\ time. Mentation: is normal, Motor: moves all fours, strength is normal. 15:30 ECG was reviewed by the Attending Physician. cp Vital Signs: 14:17 BP 133 / 49; Pulse 99; Resp 20; Temp 99.5(O); Pulse Ox 98% on R/A; Weight 86.18 kg; vg1 Height 5 ft. 5 in. (165.10 cm); Pain 0/10; 14:44 BP 135 / 48; Pulse 93; Resp 20; Temp 99.4; Pulse Ox 98% on R/A; dw3 16:45 BP 109 / 50; Pulse 85; Resp 20; Temp 98.9; Pulse Ox 94% on R/A; dw3 19:10 BP 97 / 41; Pulse 80; Resp 20; Temp 98.3; Pulse Ox 93% on R/A; dw3 14:17 Body Mass Index 31.62 (86.18 kg, 165.10 cm) vg1 MDM: 14:33 Patient medically screened. lisa 15:00 Differential diagnosis: gastritis, cholecystitis, pancreatitis, appendicitis, cp diverticulitis, viral gastroenteritis, gastroenteritis. 18:42 Data reviewed: vital signs, nurses notes, lab test result(s), EKG, radiologic studies, cp CT scan, plain films. 18:42 Test interpretation: by ED physician or midlevel provider: ECG, plain radiologic cp studies. Counseling: I had a detailed discussion with the patient and/or guardian regarding: the historical points, exam findings, and any diagnostic results supporting the discharge/admit diagnosis, lab results, radiology results, to return to the emergency department if symptoms worsen or persist or if there are any questions or concerns that arise at home. Response to treatment: the patient's symptoms have markedly improved after treatment, Nausea and pain markedly improved. Vomiting resolved and patient observed tolerating po fluids. Will discharge to home for continued monitoring. 01/07 14:42 Order name: Basic Metabolic Panel; Complete Time: 16:13 cp 01/07 16:13 Interpretation: Normal except: NA 134; K 3.2; GLUC 125; GFR 50. cp 01/07 14:42 Order name: CBC with Diff; Complete Time: 16:47 cp 01/07 16:14 Interpretation: Normal except: WBC 13.6; BETH% 92.1; LYM% 3.3; NEUT A 12.5; LYMA 0.4. cp 01/07 14:42 Order name: LFT's; Complete Time: 16:13 cp 01/07 16:50 Interpretation: Normal except: BILID 0.3; TP 8.4; GLOB 4.7; A/G 0.8. cp 01/07 14:42 Order name: Magnesium; Complete Time: 16:13 cp 01/07 14:42 Order name: PT-INR; Complete Time: 16:13 cp 01/07 14:42 Order name: Troponin HS; Complete Time: 16:13 cp 01/07 14:42 Order name: XRAY Chest (1 view); Complete Time: 18:13 cp 01/07 18:14 Interpretation: Report review. cp 01/07 14:42 Order name: Lipase; Complete Time: 16:13 cp 01/07 14:42 Order name: Urine Microscopic Only cp 01/07 14:42 Order name: CT Abd/Pelvis - IV Contrast Only; Complete Time: 16:47 cp 01/07 16:43 Order name: CBC Smear Scan; Complete Time: 16:47 EDMS 01/07 16:48 Order name: US Abdomen Limited: RUQ/epigastric; Complete Time: 18:13 cp 01/07 18:14 Interpretation: Report reviewed. 01/07 19:04 Order name: Urine Culture EDRI 01/07 14:42 Order name: EKG; Complete Time: 14:43 cp 01/07 14:42 Order name: Cardiac monitoring; Complete Time: 15:22 cp 01/07 14:42 Order name: EKG - Nurse/Tech; Complete Time: 15:22 cp 01/07 14:42 Order name: IV Saline Lock; Complete Time: 15:22 cp 01/07 14:42 Order name: Labs collected and sent; Complete Time: 15:22 cp 01/07 14:42 Order name: O2 Per Protocol; Complete Time: 15:22 cp 01/07 14:42 Order name: O2 Sat Monitoring; Complete Time: 15:22 cp 01/07 14:42 Order name: Urine Dipstick-Ancillary (obtain specimen); Complete Time: 19:12 cp 01/07 18:15 Order name: PO challenge; Complete Time: 19:11 cp EC:30 Rate is 91 beats/min. Rhythm is regular. GA interval is normal. QRS interval is normal. cp QT interval is normal. T waves are Inverted. Interpreted by me. Reviewed by me. Administered Medications: 15:43 Drug: NS 0.9% 250 ml Route: IV; Rate: bolus; Site: right antecubital; aa5 16:30 Follow up: IV Status: Completed infusion dw3 15:43 Drug: NS 0.9% 250 ml Route: IV; Rate: 125 ml/hr; Site: right antecubital; aa5 17:30 Follow up: IV Status: Completed infusion dw3 19:08 Drug: Potassium Effervescent Tablet 50 mEq Route: PO; dw3 19:10 Follow up: Response: Medication administered at discharge. dw3 Disposition Summary: 01/07/22 18:42 Discharge Ordered Location: Home cp Problem: new cp Symptoms: have improved cp Condition: Stable cp Diagnosis - Nausea with vomiting, unspecified cp Followup: cp - With: Misael Koehler MD - When: 1 - 2 days - Reason: Recheck today's complaints Discharge Instructions: - Discharge Summary Sheet cp - Nausea and Vomiting, Adult cp Forms: - Medication Reconciliation Form cp - Thank You Letter cp - Antibiotic Education cp - Prescription Opioid Use cp Prescriptions: - Pepcid 20 mg Oral Tablet - take 1 tablet by ORAL route every 12 hours for 5 days; 10 tablet; Refills: 0, cp Product Selection Permitted - Zofran 4 mg Oral Tablet - take 1 tablet by ORAL route every 12 hours As needed; 20 tablet; Refills: 0, cp Product Selection Permitted Addendum: 01/09/2022 07:50 Co-signature as Attending Physician, Justus Figueroa MD I agree with the assessment and c sethi plan of care. Signatures: Dispatcher [employer] Justus Bowers MD MD cha Calderon, Audri, RN RN aa5 Justus Cifuentes PA PA Dianen Alfred, RN RN vg1 Olga Lidia Mayfield RN RN dw3
[2022-01-07 19:02] LABS: Urine Bacteria 20-50 /HPF (<20); Urine Mucus 1+ /HPF (NONE SEEN); Urine RBC <5 /HPF (NONE SEEN)
[2022-01-07] MEDS ORDERED: POTASSIUM 25 MEQ EFFERV TAB ONE (19:06)
[2022-01-08 01:40] VITALS: BP 109/50; TEMP 98.9; O2SAT 94
--- NOTE | 2022-01-08 07:55 | EKG ---
Test Date: 2022-01-07 Test Time: 15:23:28 Manager Home: PATRIA MEASUREMENT RESULTS: Intervals: Rate: 91 NV: 160 QRSD: 88 QT: 356 QTc: 437 [place]: P: 48 NV: 160 QRS: 46 T: 80 INTERPRETIVE STATEMENTS: Normal sinus rhythm Nonspecific ST and T wave abnormality Abnormal ECG Compared to ECG 09/06/2020 20:29:02 ST (T wave) deviation now present Myocardial infarct finding no longer present Electronically Signed On 01-08-22 07:54:29 CDT by Paulino Dooley
== END 2022-01-07 19:20 | disposition home or self-care (01) ==
LOC: ER 13:46
DX: R11.2 Nausea with vomiting, unspecified (principal); R53.1 Weakness; R10.13 Epigastric pain; I10 Essential (primary) hypertension; E78.00 Pure hypercholesterolemia, unspecified; Z79.82 Long term (current) use of aspirin
CPT/HCPCS: 96365; 93005; 87088; 85025; 87086; 80048; 36415; 83735; 85610; 80076; 87077; 87186; 81015; 84484; 83690; 74177; 71045; 76705; 99284; 96366; Q9967; J7050

== ENCOUNTER 2022-03-12 12:58 | Emergency (ER) | payer OTHER ==
--- OUTSIDE RECORDS SUMMARY | 2022-03-12 13:00 | XMS REPORT | Continuity of Care Document ---
:1950 Author Organization [facility] t Address [address] [place] [address] Care Team Providers Name Role Phone GELLER Attending Clinician Unavailable Payers Payer Name Policy Type Policy Number Effective Date Expiration Date S ource Problems Condition Condition Condition Status Onset Resolution Last Treating Co mments Source Name Details Category Date Date Treatment Clinician Date History of History of Problem Resolve [place] seizure seizure d Physici ans Breast Breast Problem Active [place] mass, left mass, left Ph ysici ans Allergies, Adverse Reactions, Alerts Allergy Allergy Status Severity Reaction(s) Onset Inactive Treating Comm ents Source Name Type Date Date Clinician No Known DA Active U 2018- [facility] [place] Family History Family Member Diagnosis Comments Start Date Stop Date Source Sister Family history of malignant [facility] neoplasm of breast Social History Smoking Status Start Date Stop Date Source Former smoker [facility] Medications This patient has no known medications. Vital Signs Vital Name Observation Time Observation Value Comments Source BP Systolic 2019-04-24 09:46:00 173 mm[Hg] [facility] BP Diastolic 2019-04-24 09:46:00 71 mm[Hg] [facility] Weight 2019-04-24 09:46:00 211 [lb_av] [facility] Body Mass Index 2019-04-24 09:46:00 35.11 kg/m2 [facility] Calculated Temperature 2019-04-24 09:46:00 97.8 [degF] [facility] Heart Rate 2019-04-24 09:46:00 75 /min [facility] BP Systolic 2019-03-06 10:37:00 185 mm[Hg] [facility] BP Diastolic 2019-03-06 10:37:00 84 mm[Hg] [facility] Weight 2019-03-06 10:37:00 211 [lb_av] [facility] Height 2019-03-06 10:37:00 65 [in_us] [facility] Body Mass Index 2019-03-06 10:37:00 35.11 kg/m2 [facility] Calculated Temperature 2019-03-06 10:37:00 97.5 [degF] CT Physi c[facility] Procedures Procedure Date / Time Performed Performing Clinician Sour e History of Hysterectomy CT Physi c[facility] Encounters Start End Encounter Admission Attending Care Care Encounter Source Date/Time Date/Time Type Type Clinicians Facility Department ID 2019-04-24 2019-04-24 Winter GELLER [facility] General [id number] [place] 11:00:00 11:00:00 t; [facility] 2019-03-06 2019-03-06 Winter GELLER [facility] General [id number] [place] 11:00:00 11:00:00 t; Shahzad MUNOZ [facility] Results Test Description Test Time Test Comments Results Result [facility] e Comments UTERUS W/WO 2019-01-06 TUBE/OVA. PROLAPSE 15:55:00 --------RUN DATE: 01/06/19 [facility] PAGE 1 RUN TIME: 170 Specimen Inquiry RUN USER: INTERFACE --------PATIENT: SUE BAXTER LOC: JIMENA U #: [id number] AGE/SX: 68/F ROOM: [facility] RE01/05/19REG DR: Yolanda Ragsdale MD : [birth year] BED: A DIS: 01/06/19 STATUS: DIS Hien TLOC: -------- SPEC #: [id number] RECD: 01/05/19 STATUS: PB RE #: [id number] LINDA: 01/05/19- SUBM DR: Yolanda Ragsdale MD ENTERED: 01/05/19 SP TYPE: UTERUSPRO OTHR DR: ORDERED: LEVEL IV CODES: [id number] - UTERUS, NOS PROCEDURES: LEVEL IV (Incomplete) [...] paratubal cyst Tissue code 1 CPT code(s): 20948 [facility] 01/06/19 GROSS DESCRIPTION ANATOMIC SOURCE OF [...] uterine cervix measures 3.5 cm in length. Social Work Professor sections are submitted in A1. CONTINUED ON NEXT PAGE --------RUN DATE: 01/06/19 [facility] PAGE 2 RUN TIME: 1702 Specimen Inquiry RUN USER: INTERFACE --------SPEC #: [id number] PATIENT: SUE BAXTER #[id number] (Continued) GROSS DESCRIPTION (Continued) The endometrium measures 0.1 cm and contains submucosal, firm nodules measuring up to 1.7 cm. The myometrium measures up to 1.0 cm and contains additional connors-white, firm nodules measuring up to 0.6 cm. The largest submucosal, firm nodule displays focal yellow calcification. Social Work Professor sections are submitted in A2 - A4 [...] 36.5 % 32.1-42.1 N AG HEPATITIS B [id number] 14:11:00 Test Item Value Reference Range Interpretation Comments AG HEPATITIS B SURFACE (test code NONREACTIVE NONREACTIVE = HBSAG) IS CONSENT FORM SIGNED FOR HIV TESTING? YAB HEPATITIS C [id number] 14:11:00 Test Item Value Reference Range Interpretation Comments AB HEPATITIS C (test code = NONREACTIVE NONREACTIVE HCVAB) SIGNAL TO CUTOFF (test code = 0.04 <0.80 N CUTOFF) IS CONSENT FORM SIGNED FOR HIV TESTING? YAB HIV 1 14:11:00 Test Item Value Reference Range Interpretation Comments AB HIV 1 2 (test NONREACTIVE NONREACTIVE Done by [employer] code = [id number]) 4th Gen HIV Ag/Ab Combo Screen IS CONSENT FORM SIGNED FOR HIV TESTING? YAG HEPATITIS B [id number] 13:41:00 Test Item Value Reference Range Interpretation Comments AG HEPATITIS B SURFACE (test code NONREACTIVE NONREACTIVE = HBSAG) IS CONSENT FORM SIGNED FOR HIV TESTING? YAB HEPATITIS C [id number] 13:41:00 Test Item Value Reference Range Interpretation Comments AB HEPATITIS C (test code = HCVAB) NONREACTIVE SIGNAL TO CUTOFF (test code = CUTOFF) <0.80 IS CONSENT FORM SIGNED FOR HIV TESTING? YAB HIV 1 13:41:00 Test Item Value Reference Range Interpretation Comments AB HIV 1 2 (test code = [id number]) NONREACTIVE IS CONSENT FORM SIGNED FOR HIV TESTING? YCHEMISTRY 7 [id number] 13:24:00 Test Item Value Reference Range Interpretation [...] CA) 9.5 mg/dL 8.4-10.2 N CBC W/AUTO [id number] 12:49:00 Test Item Value Reference Range Interpretation [...] (test NORMAL NORMAL code = PLTMR) URINALYSIS [id number] 12:24:00 Test Item Value Reference Range Interpretation [...]
[2022-03-12] MEDS ORDERED: LIDOCAINE 1% MPF 5 ML VIAL ONE ×2 (14:02→15:58)
--- NOTE | 2022-03-12 15:25 | RAD REPORT ---
EXAM DESCRIPTION: RAD - Knee Left 3 View - 03/12/2022 3:08 pm CLINICAL HISTORY: PAIN COMPARISON: No comparisons FINDINGS: No acute fracture. No malalignment. Mild patellofemoral compartment spurring. Mild medial compartment narrowing. IMPRESSION: No acute osseous abnormality involving the left knee.
--- NOTE | 2022-03-12 15:32 | RAD REPORT ---
EXAM DESCRIPTION: RAD - Knee Right 3 View - 03/12/2022 3:08 pm CLINICAL HISTORY: PAIN COMPARISON: No comparisons FINDINGS/IMPRESSION: No acute fracture. No malalignment. Tricompartmental degenerative changes which are moderate to advanced in the medial compartment, mild lateral compartment, and moderate to severe in the patellofemoral compartment.
--- NOTE | 2022-03-12 16:07 | EDPHYS ---
Physician Documentation [facility] Name: Ne Bellamy Age: 71 yrs Sex: Female : 1950 Arrival Date: 03/12/2022 Time: 13:00 Bed 5 Private MD: ED Physician Srinivasan Angelo HPI: 03/12 13:53 This 71 yrs old Female presents to ER via Wheelchair with complaints of Fall pm1 Injury, Knee Laceration. 13:53 Details of fall: The patient fell from an upright position, while walking. Onset: The pm1 symptoms/episode began/occurred just prior to arrival. Associated injuries: The patient sustained left knee, contusion, laceration, right knee, contusion. Severity of symptoms: in the emergency department the symptoms are unchanged. The patient has not experienced similar symptoms in the past. The patient has not recently seen a physician. Patient walking up steps to her porch and tripped, falling onto both knees on her porch. No head injury, headache, neck pain, LOC. Patient with pain to her right and left knee, with laceration to left knee. Historical: - Allergies: 13:29 No Known Allergies; aa5 - PMHx: 13:29 Gastric Reflux; High Cholesterol; Hypertension; Seizures; aa5 - PSHx: 13:29 hysterectomy; aa5 - Immunization history:: Adult Immunizations unknown. - Social history:: Smoking status: Patient denies any tobacco usage or history of. ROS: 13:53 Constitutional: Negative for fever, chills, and weight loss, Cardiovascular: Negative pm1 for chest pain, palpitations, and edema, Respiratory: Negative for shortness of breath, cough, wheezing, and pleuritic chest pain. 13:53 Neck: Negative for injury, pain, and swelling, Back: Negative for injury and pain, Neuro: Negative for headache, weakness, numbness, tingling, and seizure. 13:53 MS/extremity: Positive for pain, of the right knee and left knee, laceration to left knee. 13:53 Skin: Positive for laceration to left knee. 13:53 All other systems are negative. Exam: 13:53 Constitutional: This is a well developed, well nourished patient who is awake, alert, pm1 and in no acute distress. 13:53 ENT: Exam is negative for acute changes, Mouth: no acute changes, Lips: normal, moist, Oral mucosa: normal, pink and intact, moist. 13:53 Neck: Exam negative for acute changes, External neck: no acute changes, C-spine: vertebral tenderness, is not appreciated, ROM/movement: no acute changes. 13:53 Cardiovascular: Exam negative for acute changes, Rate: normal, Rhythm: regular, Pulses: no pulse deficits are appreciated. 13:53 Respiratory: Exam negative for acute changes, respiratory distress, shortness of breath. 13:53 Musculoskeletal/extremity: Extremities: grossly normal except: noted in the right knee: contusion, ecchymosis, noted in the left knee: contusion, laceration, no evidence of decreased ROM, deformity. 13:53 Skin: Appearance: normal except for affected area, injury, laceration(s), the wound is approximately 7 cm(s), of the left knee, that can be described as clean, no foreign body, without bleeding, crescent shaped. 13:53 Neuro: Exam negative for acute changes, Orientation: is normal, Mentation: is normal, Motor: moves all fours, Sensation: no obvious gross deficits. Vital Signs: 13:27 BP 158 / 67; Pulse 85; Resp 18 S; Temp 98.0(TE); Pulse Ox 100% on R/A; Weight 88.9 kg aa5 (R); Height 5 ft. 5 in. (165.10 cm) (R); 17:10 BP 136 / 70; Pulse 77; Resp 18; Pulse Ox 100% ; Pain 4/10; jh6 13:27 Body Mass Index 32.62 (88.90 kg, 165.10 cm) aa5 Laceration: 16:03 Wound Repair of 7cm ( 2.8in ) subcutaneous laceration to left knee. Irregularly pm1 shaped.. crescent shaped. Distal neuro/vascular/tendon intact. Anesthesia: Local anesthetic administered with 6 mls of 1% lidocaine. Wound prep: Extensive cleansing with hibiclenz by me, Wound irrigation with saline by me, Wound explored extensively, Copious irrigation. Skin closed with 10 1-0 Carlos using staple gun. Dressed with Neosporin, 4x4's, Kerlix. Patient tolerated well. MDM: 13:28 Patient medically screened. pm1 14:22 ED course: Tetanus less than five years per patient. pm1 16:03 Data reviewed: vital signs. Data interpreted: Pulse oximetry: on room air is 100 %. pm1 Interpretation: normal. Counseling: I had a detailed discussion with the patient and/or guardian regarding: the historical points, exam findings, and any diagnostic results supporting the discharge/admit diagnosis, radiology results, the need for outpatient follow up, a family practitioner, suture removal in 10-14 days, to return to the emergency department if symptoms worsen or persist or if there are any questions or concerns that arise at home. 03/12 13:53 Order name: Knee Left 3 View XRAY; Complete Time: 15:28 pm1 03/12 13:53 Order name: Knee Right 3 View XRAY; Complete Time: 15:34 pm1 03/12 13:53 Order name: Dressing - Wound; Complete Time: 14:01 pm1 03/12 13:53 Order name: Gloves, Sterile; Complete Time: 14:01 pm1 03/12 13:53 Order name: Prolene, Sutures; Complete Time: 14:01 pm1 03/12 13:53 Order name: Setup Suture Tray; Complete Time: 14:01 pm1 03/12 16:02 Order name: Knee Immobilizer; Complete Time: 17:21 pm1 03/12 16:02 Order name: Misc. Order: Walker; Complete Time: 17:21 pm1 Administered Medications: 15:56 Drug: Lidocaine (1 %) 5 ml Volume: 5 ml; Route: Infiltration; [facility] 16:45 Drug: [place] (HYDROcodone-acetaminophen) 10 mg-325 mg 1 tabs Route: PO; [facility] 17:29 Follow up: Response: No adverse reaction [facility] Disposition Summary: 03/12/22 16:06 Discharge Ordered Location: Home pm1 Problem: new pm1 Symptoms: have improved pm1 Condition: Stable pm1 Diagnosis - Laceration without foreign body, left knee pm1 - Contusion of right knee pm1 - Contusion of left knee pm1 Followup: pm1 - With: Emergency Department - When: As needed - Reason: Worsening of condition Followup: pm1 - With: Private Physician - When: 10 - 14 days - Reason: Recheck today's complaints, Continuance of care, Staple/Suture removal, Re-evaluation by your physician Discharge Instructions: - Discharge Summary Sheet pm1 - Contusion pm1 - How to Use a Knee Immobilizer pm1 - Laceration Care, Adult pm1 - How to Use a Walker pm1 - Fall Prevention in the Home, Adult pm1 Forms: - Medication Reconciliation Form pm1 - Thank You Letter pm1 - Antibiotic Education pm1 - Prescription Opioid Use pm1 Prescriptions: - Tramadol 50 mg Oral Tablet - take 1 tablet by ORAL route every 8 hours as needed; 12 tablet; Refills: 0, pm1 Product Selection Permitted - Cephalexin 500 mg Oral Capsule - take 1 capsule by ORAL route every 6 hours for 10 days; 40 capsule; Refills: 0, pm1 Product Selection Permitted Signatures: Dispatcher [employer] Maren Anthony RN RN aa5 Del Lagos NP ADMINISTRATIVE NURSING SUPERVISOR pm1 Kerry Connors RN RN jh6
--- NOTE | 2022-03-12 16:07 | ER ---
Nurse's Notes [facility] Name: Ne Bellamy Age: 71 yrs Sex: Female : 1950 Arrival Date: 03/12/2022 Time: 13:00 Bed 5 Private MD: Diagnosis: Laceration without foreign body, left knee;Contusion of right knee;Contusion of left knee Presentation: 03/12 13:27 Chief complaint: Patient states: "I tripped and fell onto my knees, my left knee has a aa5 cut and my right knee hurts". Coronavirus screen: At this time, the client does not indicate any symptoms associated with coronavirus-19. Ebola Screen: No symptoms or risks identified at this time. Initial Sepsis Screen: Does the patient meet any 2 criteria? No. Patient's initial sepsis screen is negative. Does the patient have a suspected source of infection? No. Patient's initial sepsis screen is negative. Risk Assessment: Do you want to hurt yourself or someone else? Patient reports no desire to harm self or others. Onset of symptoms was February 2022. 13:27 Acuity: TREVOR 4 aa5 13:27 Method Of Arrival: Wheelchair aa5 Historical: - Allergies: 13:29 No Known Allergies; aa5 - PMHx: 13:29 Gastric Reflux; High Cholesterol; Hypertension; Seizures; aa5 - PSHx: 13:29 hysterectomy; aa5 - Immunization history:: Adult Immunizations unknown. - Social history:: Smoking status: Patient denies any tobacco usage or history of. Screenin:30 Abuse screen: Denies threats or abuse. Denies injuries from another. jh6 13:30 Nutritional screening: No deficits noted. Tuberculosis screening: No symptoms or risk jh6 factors identified. Fall Risk None identified. Assessment: 13:30 General: Appears uncomfortable, well groomed, Behavior is calm, cooperative. jh6 13:30 Pain: Complains of pain in right leg and left knee Pain radiates to left knee Pain jh6 currently is 7 out of 10 on a pain scale. Quality of pain is described as throbbing, Pain began suddenly, Is continuous, Aggravated by increased activity, Noted to be grimacing, Also complains of laceration allan knee. Injury Description: Laceration sustained to left knee is clean, 2.6 to 7.5 cm long, bleeding moderately, a small amount of bleeding noted at this time. 15:00 Reassessment: No changes from previously documented assessment. jh6 15:30 Reassessment: Patient and/or family updated on plan of care and expected duration. Pain jh6 level reassessed. Patient is alert, oriented x 3, equal unlabored respirations, skin warm/dry/pink. Laceration kit, saline and stapler at bedside as well as chucks . verbal understanding of wound repair and procedure. waiting for x ray results. 17:26 Reassessment: Patient and/or family updated on plan of care and expected duration. Pain jh6 level reassessed. Patient is alert, oriented x 3, equal unlabored respirations, skin warm/dry/pink. aprox 8 tabatha placed to close wound. wound then cleaned and triple antibiotic cream placed over lac with instructions on wound care and bandaging. knee immobilizer placed on leg and instructions on use as well as the use of a walker given. Patient states symptoms have improved. Vital Signs: 13:27 BP 158 / 67; Pulse 85; Resp 18 S; Temp 98.0(TE); Pulse Ox 100% on R/A; Weight 88.9 kg aa5 (R); Height 5 ft. 5 in. (165.10 cm) (R); 17:10 BP 136 / 70; Pulse 77; Resp 18; Pulse Ox 100% ; Pain 4/10; jh6 13:27 Body Mass Index 32.62 (88.90 kg, 165.10 cm) aa5 ED Course: 13:00 Patient arrived in ED. mr 13:07 Del Lagos NP is PHCP. pm1 13:07 Srinivasan Angelo MD is Attending Physician. pm1 13:27 Arm band placed on Patient placed in an exam room, on a stretcher. aa5 13:28 Triage completed. aa5 13:30 No provider procedures requiring assistance completed. jh6 13:55 Kerry Connors, ALAN is Primary Nurse. jh6 14:00 Placed in gown. Bed in low position. Call light in reach. Side rails up X2. Adult w/ jh6 patient. 15:10 Knee Left 3 View XRAY In Process Unspecified. EDMS 15:10 Knee Right 3 View XRAY In Process Unspecified. EDMS 16:00 Assist provider with laceration repair on left knee that was between 2.6 to 7.5 cm jh6 using tabatha. Set up tray. Performed by Del Lagos SUPERVISOR PUBLIC MESSAGE SERVICE Dressed with 4X4s, Adaptic, Kerlix, Melissa, Neosporin, Patient tolerated well. 17:00 Dressings: Adaptic X 1; left knee Melissa x 1 left knee non-adherent dressing x 1 left jh6 knee 4X4s X 1; left knee. Knee immobilizer applied on left knee. Administered Medications: 15:56 Drug: Lidocaine (1 %) 5 ml Volume: 5 ml; Route: Infiltration; 6 16:45 Drug: [place] (HYDROcodone-acetaminophen) 10 mg-325 mg 1 tabs Route: PO; [facility] 17:29 Follow up: Response: No adverse reaction 6 Outcome: 16:06 Discharge ordered by . pm1 17:00 Discharged to home via wheelchair. jh6 17:00 Condition: improved jh6 17:00 Discharge instructions given to patient, family, Instructed on discharge instructions, follow up and referral plans. Demonstrated understanding of instructions, follow-up care, medications, Prescriptions given X 2. 17:30 Patient left the ED. jh6 Signatures: Dispatcher [employer] [facility] CortezGena Esequiel, Maren, RN RN aa5 Del Lagos NP SUPERVISOR PUBLIC MESSAGE SERVICE pm1 Kerry Connors RN RN 6
[2022-03-12] MEDS ORDERED: HYDROCODONE/APAP 10/325 TAB ONE (16:40)
[2022-03-12 17:40] VITALS: TEMP 98; O2SAT 100
[2022-03-12 17:42] VITALS: BP 136/70
== END 2022-03-12 17:30 | disposition home or self-care (01) ==
LOC: ER 12:58
PROC: 0JQP0ZZ Repair Left Lower Leg Subcutaneous Tissue and Fascia, Open Approach (ICD-10-PCS; principal; 2022-03-12)
DX: S81.012A Laceration without foreign body, left knee, initial encounter (principal); S80.02XA Contusion of left knee, initial encounter; S80.01XA Contusion of right knee, initial encounter; I10 Essential (primary) hypertension
CPT/HCPCS: 99284